=== PATIENT | male | born 1945 | race Caucasian/White ===

== ENCOUNTER 2020-01-30 19:57 | Inpatient (IN) | payer MEDICARE ==
[2020-01-30] MEDS ORDERED: RINGERS LACTATED IV ONE (20:27)
--- NOTE | 2020-01-30 20:30 | ER Document Report ---
ED Fever - General Chief Complaint: Fever Stated Complaint: ALTERED MENTAL STATUS Time Seen by Provider: 01/30/20 20:20 Notes: Patient is a 75-year-old male that comes from [facility] for chief complaint of altered mental status, decreased responsiveness, nursing staff reported he "looked more in pain than usual" per EMS, and he was found to have a fever of 101 F on arrival by EMS. Patient reportedly has had d ecreased urine output from his Merchant, he has a suprapubic catheter. Patient reportedly has some dementia at baseline, has a history of atrial fibrillation on (Cardizem and Eliquis), CHF, insulin-dependent diabetes, renal transplant (on tacrolimus), decubitus ulcers on the heels of both feet, CVA, CAD with [place]. He does have DNR paperwork with him here. He received 975 Tylenol as needed and 500 cc bolus by EMS. TRAVEL OUTSIDE OF THE [place] IN LAST 30 DAYS: No - Related Data Allergies/Adverse Reactions: blue dye Allergy (Verified 01/30/20 20:17) Corticosteroids (Glucocorticoids) Allergy (Verified 01/30/20 20:17) enoxaparin Allergy (Verified 01/30/20 20:17) Iodinated Contrast Media Allergy (Verified 01/30/20 20:17) morphine Allergy (Verified 01/30/20 20:17) NSAIDS (Non-Steroidal Anti-Inflamma Allergy (Verified 01/30/20 20:17) promethazine Allergy (Verified 01/30/20 20:17) Sulfa (Sulfonamide Antibiotics) Allergy (Verified 01/30/20 20:17) TAPE Allergy (Uncoded 01/30/20 20:17) Past Medical History - General Information source: Patient, Transfer Record, Emergency Med Personnel - Social History Smoking Status: Unknown if Ever Smoked Frequency of alcohol use: None Drug Abuse: None Lives with: [facility] Family History: None Patient has suicidal ideation: No Patient has homicidal ideation: No - Past Medical History Cardiac Medical History: Reports: Hx Atrial Fibrillation, Hx Coronary Artery Disease, Hx Hypertension Endocrine Medical History: Reports: Hx Diabetes Mellitus Type 2 Renal/ Medical History: Reports: Other - renal transplant - Immunizations Hx Diphtheria, Pertussis, Tetanus Vaccination: Yes Review of Systems - Review of Systems Constitutional: See HPI EENT: No symptoms reported Cardiovascular: No symptoms reported Respiratory: No symptoms reported Gastrointestinal: No symptoms reported Genitourinary: No symptoms reported Male Genitourinary: No symptoms reported Musculoskeletal: No symptoms reported Skin: No symptoms reported Hematologic/Lymphatic: No symptoms reported Neurological/Psychological: See HPI Physical Exam - Vital signs Vitals: Temp Resp BP Pulse Ox 101 F H 18 113/56 L 97 01/30/20 20:11 01/30/20 20:11 01/30/20 20:11 01/30/20 20:11 - Notes Notes: GENERAL: Drowsy but arousable and cooperative, does not appear to be in distress but is somewhat ill in appearance HEAD: Normocephalic, atraumatic. EYES: Pupils equal, round, and reactive to light. Extraocular movements intact. ENT: Oral mucosa moist, tongue midline. Oropharynx unremarkable. Airway patent. Nares patent, no nasal septal hematoma LUNGS: Clear to auscultation bilaterally, no wheezes, rales, or rhonchi. No respiratory distress. HEART: Irregularly irregular, mildly tachycardic, no murmur ABDOMEN: Soft, non-tender. Non-distended. Large lower abdominal scar which is o ld. Suprapubic catheter in place. GENITOURINARY: No swelling or tenderness, no concerning findings EXTREMITIES: Moves all 4 extremities spontaneously. No edema, normal radial and dorsalis pedis pulses bilaterally. No cyanosis. BACK: no cervical, thoracic, lumbar midline tenderness. NEUROLOGICAL: Alert and responsive, cooperative but not oriented. Clear speech. Cranial nerves II through XII grossly intact. SKIN: Flushed Course - Re-evaluation Re-evalutation: Patient is febrile, flushed, however he is actually quite responsive and cooperative. He is confused but reportedly he is confused at baseline. He is tachycardic with atrial fibrillation but atrial fibrillation is chronic and this is not in RVR at this time. He is not hypotensive or hypoxic. His abdomen is soft and does not appear to be tender at all. He has a suprapubic catheter and we pulled urine from the port. Chest x-ray showing airspace opacities and effusion on the left. CBC shows leukocytosis at 24,000 with elevation of neutrophils but no bandemia. Urine does indicate infection, nonspecific given suprapubic catheter. Lactic acid is mildly elevated at 2.9, patient received 500 cc bolus and received 2 additional boluses here, however I did not give additional from there because of patient's history of congestive heart failure. Patient occasionally drops blood pressure down into the upper 90s but this has been returning to the 100s systolic and patient has not become severely hypotensive. Patient has been covered with broad-spectrum antibiotics. He will require admission for pneumonia, urinary tract infection, leukocytosis, tachycardia, suspected early sepsis. Patient also will require treatment for hospital- acquired infection with broad-spectrum antibiotics. Discussed with Dr. Cantrell. Discussed with Dr. Castro, hospitalist, patient accepted to the [facility] full admission. did come to bedside, she states that her phone had been missing with a calls from earlier, she went and saw the patient, patient is actually doing very well now, he recognized her, he appears much improved in appearance, she was very happy with this. She states he started not recognizing her last night (almost 24 hours ago). She states she was thinking maybe the patient could be transferred, we discussed this, she states that if patient can be treated here she would prefer this. She brought all of patient's medications. Patient already has a bed upstairs. I discussed with Dr. Cantrell, agrees with admission here. I answered all questions to the best of my ability, she states appreciation and agreement with admission plan. - Vital Signs Vital signs: Temp Pulse Resp BP Pulse Ox 99.4 F 23 H 94/48 L 95 01/31/20 02:52 01/31/20 02:01 01/31/20 02:01 01/31/20 02:01 - Laboratory Result Diagrams: 01/30/20 21:00 01/30/20 21:00 Laboratory results interpreted by me: 01/30/20 01/30/20 01/30/20 21:00 21:00 21:00 WBC 24.2 H RBC 4.17 L Hgb 10.6 L Hct 32.3 L MCV 77 L MCH 25.3 L RDW 21.3 H Plt Count 561 H Seg Neuts % (Manual) 89 H Lymphocytes % (Manual) 8 L Monocytes % (Manual) 1 L Abs Neuts (Manual) 21.5 H VBG pH VBG pCO2 Sodium 135.7 L Potassium 3.3 L BUN 30 H Creatinine 1.31 H Est GFR (MDRD) Non-Af 53 L Glucose 33 L* POC Glucose Lactic Acid 2.7 H Calcium 7.2 L Magnesium Alkaline Phosphatase 144 H Total Protein 4.7 L Albumin 2.1 L Urine Protein Ur Leukocyte Esterase 01/30/20 01/30/20 01/30/20 21:00 22:24 22:30 WBC RBC Hgb Hct MCV MCH RDW Plt Count Seg Neuts % (Manual) Lymphocytes % (Manual) Monocytes % (Manual) Abs Neuts (Manual) VBG pH 7.49 H VBG pCO2 28.0 L Sodium Potassium BUN Creatinine Est GFR (MDRD) Non-Af Glucose POC Glucose 117 H Lactic Acid Calcium Magnesium 1.3 L Alkaline Phosphatase Total Protein Albumin Urine Protein Ur Leukocyte Esterase 01/30/20 23:30 WBC RBC Hgb Hct MCV MCH RDW Plt Count Seg Neuts % (Manual) Lymphocytes % (Manual) Monocytes % (Manual) Abs Neuts (Manual) VBG pH VBG pCO2 Sodium Potassium BUN Creatinine Est GFR (MDRD) Non-Af Glucose POC Glucose Lactic Acid Calcium Magnesium Alkaline Phosphatase Total Protein Albumin Urine Protein 30 H Ur Leukocyte Esterase LARGE H Discharge - Discharge Clinical Impression: Tachycardia Fever Qualifiers: Fever type: unspecified Qualified Code(s): R50.9 - Fever, unspecified Altered mental status Qualifiers: Altered mental status type: unspecified Qualified Code(s): R41.82 - Altered mental status, unspecified Leukocytosis Qualifiers: Leukocytosis type: unspecified Qualified Code(s): D72.829 - Elevated white blood cell count, unspecified Condition: Fair Disposition: ADMITTED INPATIENT Admitting Provider: Matthew (Hospitalist) Unit Admitted: [facility]
[2020-01-30] MEDS ORDERED: NORMAL SALINE 1000 ML 1,000 ML IV ONE ×2 (20:40→21:54)
[2020-01-30] MEDS ORDERED: PIPERACILLIN/TAZOBACTAM 3.375 GM VIAL IV ONE (20:40)
[2020-01-30] MEDS ORDERED: VANCOMYCIN HCL INJ 1000 MG VIAL IV ONE (20:40)
--- NOTE | 2020-01-30 21:11 | RADIOLOGY REPORT (SQ) ---
AP Portable chest: 01/30/2020 8:09 PM CDT History: 75-year old patient with fever, tachycardia. Comparison: None available Findings: The cardiomediastinal silhouette is enlarged. No pneumothorax is seen. There are airspace opacities within the left lung base associated with a small left effusion. Atherosclerotic calcifications are seen at the aortic arch. There is prominence of the main pulmonary artery. There is partial obscuration of the left hemidiaphragm, likely due to overlying airspace opacities and/or effusions. Impression: There are airspace opacities at the left lung base associated with a small left effusion.
[2020-01-30 21:34] LABS: HEMATOCRIT 32.3 % (37.9-51.0); HEMOGLOBIN 10.6 g/dL (13.5-17.0); MEAN CORPUSCULAR HEMOGLOBIN 25.3 pg (27.0-33.4); MEAN CORPUSCULAR HGB CONC 32.7 g/dL (32.0-36.0); MEAN CORPUSCULAR VOLUME 77 fl (80-97); PLATELET COUNT 561 10^3/uL (150-450); RED BLOOD COUNT 4.17 10^6/uL (4.35-5.55); RED CELL DISTRIBUTION WIDTH 21.3 % (11.5-14.0); WHITE BLOOD COUNT 24.2 10^3/uL (4.0-10.5)
[2020-01-30 21:42] LABS: ALBUMIN 2.1 g/dL (3.5-5.0); ALKALINE PHOSPHATASE 144 U/L (38-126); ANION GAP 10 (5-19); ASPARTATE AMINO TRANSFERASE 38 U/L (17-59); BILIRUBIN,DIRECT 0.3 mg/dL (0.0-0.4); BILIRUBIN,TOTAL 0.3 mg/dL (0.2-1.3); BLOOD UREA NITROGEN 30 mg/dL (7-20); CALCIUM 7.2 mg/dL (8.4-10.2); CARBON DIOXIDE 22 mmol/L (22-30); CHLORIDE 104 mmol/L (98-107); POTASSIUM 3.3 mmol/L (3.6-5.0); TOTAL PROTEIN 4.7 g/dL (6.3-8.2)
[2020-01-30 21:53] LABS: ABSOLUTE LYMPHOCYTES# (MANUAL) 1.9 10^3/uL (0.5-4.7); ABSOLUTE MONOCYTES # (MANUAL) 0.2 10^3/uL (0.1-1.4); ANISOCYTOSIS 3+; BASOPHILS % (MANUAL) 1 % (0-2); EOSINOPHILS % (MANUAL) 1 % (0-6); HYPOCHROMASIA SLIGHT; LYMPHOCYTES % (MANUAL) 8 % (13-45); MONOCYTES % (MANUAL) 1 % (3-13); PLATELET CLUMPS PRESENT; PLATELET COMMENT INCREASED; PLATELET GIANT PRESENT; PLATELET LARGE PRESENT; POIKILOCYTOSIS SLIGHT; POLYCHROMASIA SLIGHT; SEGMENTED NEUTROPHILS % (MAN) 89 % (42-78); TOTAL CELLS COUNTED 100
[2020-01-30 21:56] LABS: GLUCOSE 33 mg/dL (75-110)
[2020-01-30] MEDS ORDERED: DEXTROSE 50%-WATER 25 GM/50 ML DISP.SYRIN IV ONE ×2 (21:56→21:58)
[2020-01-30 22:44] LABS: VENOUS BLOOD BASE EXCESS -1.4 mmol/L; VENOUS BLOOD PH 7.49 (7.30-7.42)
[2020-01-30 23:13] LABS: A TYPE INFLUENZA AG NEGATIVE (NEGATIVE); B INFLUENZA AG NEGATIVE (NEGATIVE)
[2020-01-30 23:59] LABS: APPEARANCE,URINE SLIGHTLY-CLOUDY; BILIRUBIN,URINE NEGATIVE (NEGATIVE); CALCIUM OXALATE CRYSTALS,URINE MODERATE /HPF; COLOR,URINE YELLOW; GLUCOSE, URINE NEGATIVE (NEGATIVE); KETONES,URINE NEGATIVE (NEGATIVE); LEUKOCYTE ESTERASE,URINE LARGE (NEGATIVE); NITRITE,URINE NEGATIVE (NEGATIVE); PROTEIN,URINE 30 mg/dL (NEGATIVE); UROBILINOGEN,URINE NEGATIVE mg/dL (<2.0)
[2020-01-31] MEDS ORDERED: MAG HYDROX/AL HYDROX/SIMETH SUSP 30 ML UDCUP PO PRN (00:02)
[2020-01-31] MEDS ORDERED: GLUCAGON,HUMAN RECOMB 1 MG INJ IM PRN (00:02)
[2020-01-31] MEDS ORDERED: DEXTROSE 50%-WATER 25 GM/50 ML DISP.SYRIN IV PRN ×2 (00:02)
[2020-01-31] MEDS ORDERED: DEXTROSE 40% GEL 15 GM TUBE PO PRN ×2 (00:02)
[2020-01-31] MEDS ORDERED: MAGNESIUM HYDROXIDE SUSP 30 ML UDCUP PO PRN (00:02)
[2020-01-31] MEDS ORDERED: IPRATROPIUM/ALBUTEROL 0.5-2.5 MG/3 ML AMPUL NEB PRN (00:02)
[2020-01-31] MEDS ORDERED: VANCOMYCIN HCL 0 MG in DEXTROSE 5%-WATER 250 ML IV NR (00:30)
[2020-01-31] MEDS ORDERED: PIPERACILLIN/TAZOBACTAM 3.375 GM VIAL IV PRN (00:41)
[2020-01-31] MEDS: NORMAL SALINE 1000 ML 1,000 ML IV PRN ×2 (04:05→09:22)
[2020-01-31 04:46] LABS: HEMATOCRIT 26.2 % (37.9-51.0); HEMOGLOBIN 8.6 g/dL (13.5-17.0); MEAN CORPUSCULAR HEMOGLOBIN 24.9 pg (27.0-33.4); MEAN CORPUSCULAR HGB CONC 32.7 g/dL (32.0-36.0); MEAN CORPUSCULAR VOLUME 76 fl (80-97); PLATELET COUNT 440 10^3/uL (150-450); RED BLOOD COUNT 3.44 10^6/uL (4.35-5.55); WHITE BLOOD COUNT 27.1 10^3/uL (4.0-10.5)
[2020-01-31 05:02] LABS: ANION GAP 9 (5-19); BLOOD UREA NITROGEN 30 mg/dL (7-20); CALCIUM 7.2 mg/dL (8.4-10.2); CARBON DIOXIDE 20 mmol/L (22-30); CHLORIDE 106 mmol/L (98-107); GLUCOSE 110 mg/dL (75-110); POTASSIUM 3.2 mmol/L (3.6-5.0)
[2020-01-31 05:28] LABS: ABSOLUTE LYMPHOCYTES# (MANUAL) 1.9 10^3/uL (0.5-4.7); ABSOLUTE MONOCYTES # (MANUAL) 1.6 10^3/uL (0.1-1.4); BAND NEUTROPHILS % (MANUAL) 2 % (3-5); BASOPHILS % (MANUAL) 1 % (0-2); EOSINOPHILS % (MANUAL) 0 % (0-6); LYMPHOCYTES % (MANUAL) 7 % (13-45); MONOCYTES % (MANUAL) 6 % (3-13); SEGMENTED NEUTROPHILS % (MAN) 84 % (42-78); TOTAL CELLS COUNTED 100; TOXIC GRANULATION SLIGHT
[2020-01-31 05:29] LABS: ANISOCYTOSIS 3+
[2020-01-31 05:30] LABS: OVALOCYTES SLIGHT; PLATELET COMMENT ADEQUATE
[2020-01-31 05:31] LABS: POLYCHROMASIA SLIGHT
[2020-01-31] MEDS ORDERED: PIPERACILLIN/TAZOBACTAM 3.375 GM VIAL IV ONE (06:11)
[2020-01-31] MEDS: PIPERACILLIN SODIUM/TAZOBACTAM 3.375 GM in NORMAL SALINE 100 ML IV SCH ×4 (06:30→23:36)
--- NOTE | 2020-01-31 06:45 | PDOC H&P ---
History of Present Illness Admission Date/PCP: 01/31/20 00:00 LAURA ERVIN MD Patient complains of: Fever and confusion History of Present Illness: LAURA CALVILLO is a 75 year old male [facility] resident with an extensive partial past medical history of blindness, dementia, renal transplant on tacrolimus, stroke, bedbound state, atrial fibrillation on Cardizem and Eliquis, congestive heart failure, insulin-dependent diabetes, bilateral heel ulcer and suprapubic catheter. History is unobtainable as family is unavailable, medication reconciliation is also pending. In the emergency department he was found with confusion, denying pain or shortness of breath but found to have anemia, fever, leukocytosis, hypokalemia, hypomagnesemia, and pyuria from a indwelling catheter. Past Medical History Cardiac Medical History: Reports: Atrial Fibrillation, Coronary Artery Disease, Hypertension Neurological Medical History: Reports: Ischemic CVA Endocrine Medical History: Reports: Diabetes Mellitus Type 2 Renal/ Medical History: Reports: Other - renal transplant Past Surgical History Past Surgical History: Reports: Gastric Bypass Surgery Social History Information Source: Emergency Med Personnel, [facility] Records Lives with: [facility]mediate Smoking Status: Unknown if Ever Smoked Frequency of Alcohol Use: None Drugs: None - Advance Directive Resuscitation Status: Do Not Resuscitate Family History Family History: Other - Unobtainable Parental Family History Reviewed: No - Unobtainable Children Family History Reviewed: No - Unobtainable Sibling(s) Family History Reviewed.: No - Unobtainable Medication/Allergy Allergies/Adverse Reactions: blue dye Allergy (Verified 01/30/20 20:17) Corticosteroids (Glucocorticoids) Allergy (Verified 01/30/20 20:17) enoxaparin Allergy (Verified 01/30/20 20:17) Iodinated Contrast Media Allergy (Verified 01/30/20 20:17) morphine Allergy (Verified 01/30/20 20:17) NSAIDS (Non-Steroidal Anti-Inflamma Allergy (Verified 01/30/20 20:17) promethazine Allergy (Verified 01/30/20 20:17) Sulfa (Sulfonamide Antibiotics) Allergy (Verified 01/30/20 20:17) TAPE Allergy (Uncoded 01/30/20 20:17) Review of Systems ROS unobtainable: Due to mental status Physical Exam Vital Signs: Temp Pulse Resp BP Pulse Ox 98.1 F 101 H 20 106/35 L 95 01/31/20 04:52 01/31/20 04:52 01/31/20 04:52 01/31/20 04:52 01/31/20 02:01 Intake & Output 01/29/20 01/30/20 01/31/20 11:59 11:59 11:59 Intake Total 1999 Balance 1999 Weight 90.718 kg General appearance: PRESENT: cooperative, hard of hearing, mild distress, well- developed, well-nourished Head exam: PRESENT: atraumatic, normocephalic Eye exam: PRESENT: EOMI, other - Pupillary asymmetry known chronic. ABSENT: conjunctival injection, conjunctiva pink, PERRLA Ear exam: PRESENT: normal external ear exam Mouth exam: PRESENT: dry mucosa, tongue midline Neck exam: ABSENT: carotid bruit, JVD, lymphadenopathy, thyromegaly Respiratory exam: PRESENT: clear to auscultation ritesh. ABSENT: rales, rhonchi, wheezes Cardiovascular exam: PRESENT: irregular rhythm. ABSENT: diastolic murmur, rubs, systolic murmur Pulses: PRESENT: normal dorsalis pedis pul Vascular exam: PRESENT: normal capillary refill GI/Abdominal exam: PRESENT: normal bowel sounds, soft. ABSENT: distended, guarding, mass, organolmegaly, rebound, tenderness Rectal exam: PRESENT: deferred Extremities exam: PRESENT: full ROM. ABSENT: calf tenderness, clubbing, pedal edema Neurological exam: PRESENT: alert, awake, oriented to person, CN II-XII grossly intact. ABSENT: motor sensory deficit Psychiatric exam: PRESENT: appropriate affect, normal mood. ABSENT: homicidal ideation, suicidal ideation Skin exam: PRESENT: dry, intact, warm, other - 4 x 4 stage II sacral decubiti, bilateral stage III heel ulcers. ABSENT: cyanosis, rash Results Laboratory Results: 01/31/20 04:26 01/31/20 04:26 01/30/20 01/30/20 01/30/20 21:00 21:00 21:00 WBC 24.2 H RBC 4.17 L Hgb 10.6 L Hct 32.3 L MCV 77 L MCH 25.3 L MCHC 32.7 RDW 21.3 H Plt Count 561 H Seg Neutrophils % Not Reportable VBG pH VBG pCO2 VBG HCO3 VBG Base Excess Sodium 135.7 L Potassium 3.3 L Chloride 104 Carbon Dioxide 22 Anion Gap 10 BUN 30 H Creatinine 1.31 H Est GFR ( Amer) > 60 Glucose 33 L* Lactic Acid 2.7 H Calcium 7.2 L Magnesium Total Bilirubin 0.3 AST 38 Alkaline Phosphatase 144 H Total Protein 4.7 L Albumin 2.1 L Urine Color Urine Appearance Urine pH Ur Specific Kaplan Urine Protein Urine Glucose (UA) Urine Ketones Urine Blood Urine Nitrite Ur Leukocyte Esterase Urine WBC (Auto) Urine RBC (Auto) 01/30/20 01/30/20 01/30/20 21:00 22:24 23:30 WBC RBC Hgb Hct MCV MCH MCHC RDW Plt Count Seg Neutrophils % VBG pH 7.49 H VBG pCO2 28.0 L VBG HCO3 21.0 VBG Base Excess -1.4 Sodium Potassium Chloride Carbon Dioxide Anion Gap BUN Creatinine Est GFR ( Amer) Glucose Lactic Acid Calcium Magnesium 1.3 L Total Bilirubin AST Alkaline Phosphatase Total Protein Albumin Urine Color YELLOW Urine Appearance SLIGHTLY-CLOUDY Urine pH 5.0 Ur Specific Kaplan 1.010 Urine Protein 30 H Urine Glucose (UA) NEGATIVE Urine Ketones NEGATIVE Urine Blood NEGATIVE Urine Nitrite NEGATIVE Ur Leukocyte Esterase LARGE H Urine WBC (Auto) 52 Urine RBC (Auto) 5 01/31/20 01/31/20 01/31/20 00:18 04:26 04:26 WBC 27.1 H RBC 3.44 L Hgb 8.6 L Hct 26.2 L MCV 76 L MCH 24.9 L MCHC 32.7 RDW 22.0 H Plt Count 440 Seg Neutrophils % Not Reportable VBG pH VBG pCO2 VBG HCO3 VBG Base Excess Sodium Potassium Chloride Carbon Dioxide Anion Gap BUN Creatinine Est GFR ( Amer) Glucose Lactic Acid 1.6 1.2 Calcium Magnesium Total Bilirubin AST Alkaline Phosphatase Total Protein Albumin Urine Color Urine Appearance Urine pH Ur Specific Kaplan Urine Protein Urine Glucose (UA) Urine Ketones Urine Blood Urine Nitrite Ur Leukocyte Esterase Urine WBC (Auto) Urine RBC (Auto) 01/31/20 04:26 WBC RBC Hgb Hct MCV MCH MCHC RDW Plt Count Seg Neutrophils % VBG pH VBG pCO2 VBG HCO3 VBG Base Excess Sodium 134.7 L Potassium 3.2 L Chloride 106 Carbon Dioxide 20 L Anion Gap 9 BUN 30 H Creatinine 1.29 H Est GFR ( Amer) > 60 Glucose 110 Lactic Acid Calcium 7.2 L Magnesium Total Bilirubin AST Alkaline Phosphatase Total Protein Albumin Urine Color Urine Appearance Urine pH Ur Specific Kaplan Urine Protein Urine Glucose (UA) Urine Ketones Urine Blood Urine Nitrite Ur Leukocyte Esterase Urine WBC (Auto) Urine RBC (Auto) Assessment and Plan - Diagnosis (1) Urinary tract infection Qualifiers: Urinary tract infection type: acute cystitis Is this a current diagnosis for this admission?: Yes Plan: Complicated by chronic indwelling Merchant, empiric antibiotics initiated, follow- up urine, blood culture and CBC (2) Encephalopathy Is this a current diagnosis for this admission?: Yes Plan: Likely secondary to #1, complicated by dementia (3) Immunocompromised state due to drug therapy Is this a current diagnosis for this admission?: Yes Plan: Patient on tacrolimus with renal transplant. Vancomycin and Zosyn ordered (4) Hypokalemia Is this a current diagnosis for this admission?: Yes Plan: Repletion and reevaluation of chemistry (5) Hypomagnesemia Is this a current diagnosis for this admission?: Yes Plan: Repletion and reevaluation of chemistry (6) Anemia Is this a current diagnosis for this admission?: Yes Plan: Unclear chronicity, follow-up anemia labs - Time Time Spent with patient: 35 or more minutes - Inpatient Certification Medical Necessity: Need Close Monitoring Due to Risk of Patient Decompensation
[2020-01-31] MEDS ORDERED: INFLUENZA QUAD (6MOS+) 2019-20 VAC 0.5 ML SYR IM ONE (06:54)
[2020-01-31] MEDS: POTASSI CL 20 MEQ/50 ML RIDER 20 MEQ/50 ML RTUPB IV SCH ×2 (08:13→09:26)
[2020-01-31] MEDS: MAGNESIUM SULFATE/D5W 1 GM/100 ML RTUPB IV SCH ×2 (08:14→09:21)
[2020-01-31] MEDS: DOCUSATE SODIUM 100 MG CAPSULE PO SCH (09:29)
--- NOTE | 2020-01-31 11:53 | EKG REPORT ---
SEVERITY:- ABNORMAL ECG - ATRIAL FIBRILLATION, V-RATE 90-136 VENTRICULAR PREMATURE COMPLEX LEFT AXIS DEVIATION CONSIDER ANTEROSEPTAL INFARCT ABNORMAL T, CONSIDER ISCHEMIA, LATERAL LEADS : Confirmed by: Mike Chamorro 31-Jan-2020 11:52:44
[2020-01-31] MEDS: VANCOMYCIN HCL 750 MG in DEXTROSE 5%-WATER 250 ML IV SCH ×2 (14:26→21:22)
[2020-01-31] MEDS: GABAPENTIN 100 MG CAPSULE PO SCH (17:42)
[2020-01-31] MEDS: RISPERIDONE 0.25 MG TABLET PO SCH (17:42)
[2020-01-31] MEDS: APIXABAN 5 MG TABLET PO SCH (17:42)
[2020-01-31] MEDS: ASCORBIC ACID 500 MG TABLET PO SCH (17:42)
[2020-01-31] MEDS ORDERED: MYCOPHENOLATE SODIUM 180 MG PO SCH (18:00)
[2020-01-31] MEDS: COLLAGENASE CLOSTRIDIUM HIST. OINT 30 GM TOP SCH (18:52)
[2020-01-31] MEDS: ISOSORBIDE DINITRATE 5 MG TABLET PO SCH (18:52)
--- NOTE | 2020-01-31 19:41 | Progress Note ---
Provider Note Provider Note: LAURA CALVILLO is a 75 year old male [facility]iary resident with an extensive partial past medical history of blindness, dementia, renal transplant on tacrolimus, stroke, bedbound state, atrial fibrillation on Cardizem and Eliquis, congestive heart failure, insulin-dependent diabetes, bilateral heel ulcer and suprapubic catheter admitted early this morning by the [employer]. Overnight events, nursing notes, vital signs, laboratory results, imaging reports, and orders reviewed. Agree with the plan of care as established by the previous provider. In addition: Have ordered sputum and urine cultures. Have resumed the patient's home medication as appropriate (twice daily Eliquis, ferrous sulfate, diltiazem, isosorbide, tamsulosin, BuSpar, gabapentin, Risperdal, and Effexor). I have asked nursing to verify whether or not the patient's suprapubic catheter has been replaced since arrival to our facility and, if not, to do so. Discussed patient's bilateral heel wounds w/ surgery. Appreciate Dr. Root's assistance; recommends Santyl dressing changes and pressure off loading. Have ordered q2 turns w/ heel floats. Discussed patient's baseline status (prior to admission to [facility] 1 month ago); pt was ambulatory 2-3 steps w/ walker. They do have wheelchair and david lift at hime. He was orientated to self and place, conversationa/socially approrpiate, but intermittently confused. Pt's wishes him to return to home, but has resonable expectations with regard to possible need for palliative care/hospice at discharge. This evening, nursing reported increased alertness; pt requesting to eat.
[2020-01-31] MEDS: DILTIAZEM HCL 30 MG TABLET PO SCH (21:25)
[2020-02-01] MEDS: DILTIAZEM HCL 30 MG TABLET PO SCH ×3 (05:06→21:32)
[2020-02-01] MEDS: LEVOTHYROXINE SODIUM 0.1 MG TABLET PO SCH (05:07)
[2020-02-01] MEDS: LEVOTHYROXINE SODIUM 0.025 MG TABLET PO SCH (05:07)
[2020-02-01] MEDS: PIPERACILLIN SODIUM/TAZOBACTAM 3.375 GM in NORMAL SALINE 100 ML IV SCH ×3 (05:07→18:15)
[2020-02-01] MEDS ORDERED: (PENDING PHARMACY ID) (Levothyroxine Sodium [Synthroid] 125 MCG) PO SCH (10:00)
[2020-02-01] MEDS: DOCUSATE SODIUM 100 MG CAPSULE PO SCH (10:05)
[2020-02-01] MEDS: PREDNISONE 5 MG TABLET PO SCH (10:28)
[2020-02-01] MEDS: TAMSULOSIN HCL 0.4 MG CAP.SR.24H PO SCH (10:28)
[2020-02-01] MEDS: ISOSORBIDE DINITRATE 5 MG TABLET PO SCH ×3 (10:28→18:15)
[2020-02-01] MEDS: ASCORBIC ACID 500 MG TABLET PO SCH (10:29)
[2020-02-01] MEDS: COLLAGENASE CLOSTRIDIUM HIST. OINT 30 GM TOP SCH ×2 (10:29→18:15)
[2020-02-01] MEDS: RISPERIDONE 0.25 MG TABLET PO SCH ×2 (10:29→18:14)
[2020-02-01] MEDS: GABAPENTIN 100 MG CAPSULE PO SCH ×3 (10:29→18:14)
[2020-02-01] MEDS: FERROUS SULFATE 325 MG TABLET PO SCH (10:29)
[2020-02-01] MEDS: APIXABAN 5 MG TABLET PO SCH ×2 (10:29→18:14)
[2020-02-01] MEDS: VENLAFAXINE HCL 37.5 MG CAP.SR.24H PO SCH (10:29)
[2020-02-01] MEDS: VANCOMYCIN HCL 750 MG in DEXTROSE 5%-WATER 250 ML IV SCH (10:35)
[2020-02-01 10:37] LABS: HEMOGLOBIN 9.1 g/dL (13.5-17.0); MEAN CORPUSCULAR HEMOGLOBIN 25.1 pg (27.0-33.4); MEAN CORPUSCULAR HGB CONC 32.5 g/dL (32.0-36.0); MEAN CORPUSCULAR VOLUME 77 fl (80-97); PLATELET COUNT 545 10^3/uL (150-450); RED BLOOD COUNT 3.63 10^6/uL (4.35-5.55); RED CELL DISTRIBUTION WIDTH 21.4 % (11.5-14.0); WHITE BLOOD COUNT 17.9 10^3/uL (4.0-10.5)
[2020-02-01 11:05] LABS: ANION GAP 9 (5-19); BLOOD UREA NITROGEN 27 mg/dL (7-20); CALCIUM 7.5 mg/dL (8.4-10.2); CARBON DIOXIDE 22 mmol/L (22-30); CHLORIDE 104 mmol/L (98-107); GLUCOSE 200 mg/dL (75-110); POTASSIUM 3.9 mmol/L (3.6-5.0)
[2020-02-01 11:21] LABS: VANCOMYCIN,TROUGH 21.4 ug/mL (5.0-20.0)
[2020-02-01 11:30] LABS: ABSOLUTE LYMPHOCYTES# (MANUAL) 0.4 10^3/uL (0.5-4.7); ABSOLUTE MONOCYTES # (MANUAL) 0.7 10^3/uL (0.1-1.4); BASOPHILS % (MANUAL) 1 % (0-2); EOSINOPHILS % (MANUAL) 2 % (0-6); LYMPHOCYTES % (MANUAL) 2 % (13-45); MONOCYTES % (MANUAL) 4 % (3-13); SEGMENTED NEUTROPHILS % (MAN) 91 % (42-78); TOTAL CELLS COUNTED 100
[2020-02-01 11:32] LABS: ANISOCYTOSIS 3+; BURR CELLS SLIGHT; HYPOCHROMASIA SLIGHT; POIKILOCYTOSIS SLIGHT; POLYCHROMASIA SLIGHT; SCHISTOCYTES SLIGHT; TEAR DROP CELLS SLIGHT; TOXIC GRANULATION SLIGHT
[2020-02-01 11:33] LABS: PLATELET COMMENT INCREASED
[2020-02-01] MEDS: ACETAMINOPHEN 325 MG TABLET PO PRN (12:17)
[2020-02-01] MEDS: BUSPIRONE HCL 10 MG TABLET PO SCH (12:18)
--- NOTE | 2020-02-01 13:05 | CDI QUERY ---
CDI Query CDI Review: Dear SHELBY, To better reflect your patients severity of illness, morbidity, and resource utilization Please LINK any condition to present on admission, if applicable. The terms probable, suspected, likely, possible or still to be ruled out may be used. If you agree, please add to the Progress Notes and Discharge Summary Query Clinical indicators METABOLIC ENCEPHALOPATHY? TOXIC ENCEPHALOPATHY? OTHER? UNABLE TO DETERMINE 2) Encephalopathy Is this a current diagnosis for this admission?: Yes Thank you, KATHY Clinical Documentation Physician Advisors GABBY Lopez Office [phone]
[2020-02-01] MEDS ORDERED: GLUCAGON,HUMAN RECOMB 1 MG INJ IM PRN (16:30)
[2020-02-01] MEDS ORDERED: DEXTROSE 50%-WATER SYRINGE 12.5 GM/25 ML DOSE IV PRN (16:30)
[2020-02-01] MEDS ORDERED: DEXTROSE 40% GEL 15 GM TUBE PO PRN (16:30)
[2020-02-01] MEDS ORDERED: DEXTROSE 40% GEL 15 GM TUBE X 2 PO PRN (16:30)
[2020-02-01] MEDS ORDERED: DEXTROSE 50%-WATER SYRINGE 25 GM/50 ML DOSE IV PRN (16:30)
[2020-02-01] MEDS ORDERED: INSULIN LISPRO 100 UNIT/ML 3 ML VIAL SUBCUT ONE (18:15)
--- NOTE | 2020-02-01 19:39 | PDOC PROGRESS REPORT ---
Subjective Progress Note for:: 02/01/20 Subjective:: LAURA CALVILLO is a 75 year old male longterm resident with an extensive partial past medical history of blindness, dementia, renal transplant on tacrolimus, stroke, bedbound state, atrial fibrillation on Cardizem and Eliquis, congestive heart failure, insulin-dependent diabetes, bilateral heel ulcer and suprapubic catheter admitted for acute metabolic encephalopathy secondary to UTI. Patient was seen on afternoon rounds. He was found sitting up in bed, c omfortably, on room air. He is awake and oriented to self. He does have delayed responses with intermittent confusion. Per nursing, he was improved mentation and increased conversational interactions this morning. She reports that his mental status is waxing and waning; overall significantly improved from yesterday. Patient does deny pain but does not answer any further questions. ROS is limited secondary to mental status. He does appear to be comfortable and is not noted to be in any acute distress at this time. Reason For Visit: UTI SEPSIS HYPOGLYCEMIA Physical Exam Vital Signs: Temp Pulse Resp BP Pulse Ox 98.5 F 100 16 120/48 L 94 02/01/20 15:09 02/01/20 15:09 02/01/20 15:09 02/01/20 15:09 02/01/20 15:09 Intake & Output 01/31/20 02/01/20 02/02/20 06:59 06:59 06:59 Intake Total 1999 4574 1870 Output Total 225 1200 625 Balance 1775 3374 1245 Weight 85 kg 84.7 kg General appearance: PRESENT: cooperative, hard of hearing, well-developed, well- nourished, other - Overweight Head exam: PRESENT: atraumatic, normocephalic Eye exam: PRESENT: conjunctiva pink, EOMI, PERRLA. ABSENT: scleral icterus Ear exam: PRESENT: normal external ear exam Mouth exam: PRESENT: moist, tongue midline Teeth exam: PRESENT: poor dentation Respiratory exam: PRESENT: clear to auscultation ritesh, symmetrical, unlabored. ABSENT: rales, rhonchi, wheezes Cardiovascular exam: PRESENT: irregular rhythm. ABSENT: diastolic murmur, rubs, systolic murmur Pulses: PRESENT: normal dorsalis pedis pul Vascular exam: PRESENT: normal capillary refill GI/Abdominal exam: PRESENT: normal bowel sounds, soft. ABSENT: distended, guarding, mass, organolmegaly, rebound, tenderness Rectal exam: PRESENT: deferred Gentrourinary exam: PRESENT: indwelling catheter Extremities exam: PRESENT: full ROM. ABSENT: calf tenderness, clubbing, pedal edema Neurological exam: PRESENT: alert, awake, oriented to person, CN II-XII grossly intact. ABSENT: motor sensory deficit Psychiatric exam: PRESENT: appropriate affect, normal mood. ABSENT: homicidal ideation, suicidal ideation Skin exam: PRESENT: dry, warm, other - 4 x 4 stage II sacral decubiti, bilateral stage III heel ulcers. ABSENT: cyanosis, rash Results Laboratory Results: 02/01/20 09:53 02/01/20 09:53 02/01/20 02/01/20 09:53 09:53 WBC 17.9 H RBC 3.63 L Hgb 9.1 L Hct 28.0 L MCV 77 L MCH 25.1 L MCHC 32.5 RDW 21.4 H Plt Count 545 H Seg Neutrophils % Not Reportable Sodium 135.0 L Potassium 3.9 Chloride 104 Carbon Dioxide 22 Anion Gap 9 BUN 27 H Creatinine 1.29 H Est GFR ( Amer) > 60 Glucose 200 H Calcium 7.5 L 01/30/20 21:03 Blood Blood Culture (PCR) - Final Staphylococcus Species Assessment and Plan - Diagnosis (1) Encephalopathy Is this a current diagnosis for this admission?: Yes Plan: Acute metabolic encephalopathy secondary to urinary tract infection, present on arrival. Improved. Patient is now alert and oriented to self. He is intermittently conversational. Patient is admitted to [facility] on continuous cardiac telemetry. On IV vancomycin and Zosyn for treatment of complicated UTI in immunocompromised with chronic indwelling catheter. Supportive care/fall precautions. Remaining management as below. (2) Urinary tract infection Qualifiers: Urinary tract infection type: acute cystitis Is this a current diagnosis for this admission?: Yes Plan: Urine cultures pending. Continue vancomycin and Zosyn. Merchant catheter has been replaced. (3) Anemia Qualifiers: Anemia type: unspecified type Qualified Code(s): D64.9 - Anemia, unspecified Is this a current diagnosis for this admission?: Yes Plan: Likely secondary to chronic disease. Anemia panel pending. Hemoglobin is overall stable (slight downward trend from 10.6-> 8.6-> 9.1). No evidence of active bleeding at this time. We will follow CBC. (4) Hypokalemia Is this a current diagnosis for this admission?: Yes Plan: Replete. Follow-up chemistry. (5) Hypomagnesemia Is this a current diagnosis for this admission?: Yes Plan: Replete Follow-up chemistry. (6) Immunocompromised state due to drug therapy Is this a current diagnosis for this admission?: Yes Plan: Patient on tacrolimus with renal transplant. Patient's has presented the medications from home to continue. Vancomycin and Zosyn ordered; will narrow as cultures result. - Time Time Spent with patient: 25-34 minutes Medications reviewed and adjusted accordingly: Yes Anticipated discharge: Home with Homehealth
[2020-02-01] MEDS ORDERED: BENZOCAINE/MENTHOL SORE THROAT LOZENGE BUCCAL PRN (19:40)
[2020-02-01] MEDS: INSULIN LISPRO 100 UNIT/ML 3 ML VIAL SUBCUT SCH (21:31)
[2020-02-02] MEDS: PIPERACILLIN SODIUM/TAZOBACTAM 3.375 GM in NORMAL SALINE 100 ML IV SCH ×5 (00:04→23:20)
[2020-02-02] MEDS: DILTIAZEM HCL 30 MG TABLET PO SCH ×3 (05:42→21:32)
[2020-02-02] MEDS: LEVOTHYROXINE SODIUM 0.025 MG TABLET PO SCH (05:42)
[2020-02-02] MEDS: LEVOTHYROXINE SODIUM 0.1 MG TABLET PO SCH (05:42)
[2020-02-02 06:47] LABS: ANION GAP 6 (5-19); BLOOD UREA NITROGEN 29 mg/dL (7-20); CALCIUM 7.4 mg/dL (8.4-10.2); CARBON DIOXIDE 23 mmol/L (22-30); CHLORIDE 107 mmol/L (98-107); GLUCOSE 185 mg/dL (75-110); POTASSIUM 3.7 mmol/L (3.6-5.0)
[2020-02-02 06:59] LABS: HEMATOCRIT 24.6 % (37.9-51.0); HEMOGLOBIN 8.1 g/dL (13.5-17.0); MEAN CORPUSCULAR HGB CONC 33.1 g/dL (32.0-36.0); MEAN CORPUSCULAR VOLUME 75 fl (80-97); PLATELET COUNT 455 10^3/uL (150-450); RED BLOOD COUNT 3.26 10^6/uL (4.35-5.55); RED CELL DISTRIBUTION WIDTH 21.7 % (11.5-14.0); WHITE BLOOD COUNT 17.4 10^3/uL (4.0-10.5)
[2020-02-02] MEDS: INSULIN LISPRO 100 UNIT/ML 3 ML VIAL SUBCUT SCH ×4 (07:55→21:32)
[2020-02-02] MEDS: VANCOMYCIN HCL 1,500 MG in DEXTROSE 5%-WATER 250 ML IV SCH (07:56)
--- NOTE | 2020-02-02 08:06 | CDI QUERY ---
CDI Query CDI Review: Dear SHELBY, To better reflect your patients severity of illness, morbidity, and resource utilization Please LINK any condition to present on admission, if applicable. The terms probable, suspected, likely, possible or still to be ruled out may be used. If you agree, please add to the Progress Notes and Discharge Summary Query Clinical indicators UTI DUE TO CHRONIC INDWELLING CATHETER? UTI UNRELATED TO CHRONIC INDWELLING CATHETER? UNABLE TO DETERMINE? OTHER? complicated UTI in immunocompromised with chronic indwelling catheter Thank you, KATHY Clinical Documentation Physician Advisors [facility] Office [phone]
[2020-02-02] MEDS: ASCORBIC ACID 500 MG TABLET PO SCH (09:55)
[2020-02-02] MEDS: GABAPENTIN 100 MG CAPSULE PO SCH ×3 (09:55→18:02)
[2020-02-02] MEDS: DOCUSATE SODIUM 100 MG CAPSULE PO SCH (09:55)
[2020-02-02] MEDS: RISPERIDONE 0.25 MG TABLET PO SCH ×2 (09:55→18:02)
[2020-02-02] MEDS: FERROUS SULFATE 325 MG TABLET PO SCH (09:55)
[2020-02-02] MEDS: ISOSORBIDE DINITRATE 5 MG TABLET PO SCH ×3 (09:55→18:02)
[2020-02-02] MEDS: PREDNISONE 5 MG TABLET PO SCH (09:55)
[2020-02-02] MEDS: APIXABAN 5 MG TABLET PO SCH ×2 (09:55→18:02)
[2020-02-02] MEDS: TAMSULOSIN HCL 0.4 MG CAP.SR.24H PO SCH (09:55)
[2020-02-02] MEDS: VENLAFAXINE HCL 37.5 MG CAP.SR.24H PO SCH (09:55)
[2020-02-02] MEDS: COLLAGENASE CLOSTRIDIUM HIST. OINT 30 GM TOP SCH ×2 (09:56→18:03)
[2020-02-02] MEDS: BUSPIRONE HCL 10 MG TABLET PO SCH (12:17)
--- NOTE | 2020-02-02 18:35 | PDOC PROGRESS REPORT ---
Subjective Progress Note for:: 02/02/20 Reason For Visit: UTI SEPSIS HYPOGLYCEMIA Physical Exam Vital Signs: Temp Pulse Resp BP Pulse Ox 98.4 F 87 20 138/57 H 92 02/02/20 15:45 02/02/20 15:45 02/02/20 15:45 02/02/20 15:45 02/02/20 15:45 Intake & Output 02/01/20 02/02/20 02/03/20 06:59 06:59 06:59 Intake Total 4574 2330 450 Output Total 1200 1600 Balance 3374 730 450 Weight 84.7 kg 91.2 kg General appearance: PRESENT: no acute distress, cooperative, hard of hearing, well-developed, well-nourished, other - Overweight Head exam: PRESENT: atraumatic, normocephalic Eye exam: PRESENT: conjunctiva pink, EOMI, PERRLA, other - Asymmetrical pupil secondary to prior CVA. ABSENT: scleral icterus Mouth exam: PRESENT: moist, tongue midline Teeth exam: PRESENT: poor dentation Respiratory exam: PRESENT: clear to auscultation ritesh, symmetrical, unlabored. ABSENT: rales, rhonchi, wheezes Cardiovascular exam: PRESENT: irregular rhythm. ABSENT: diastolic murmur, rubs, systolic murmur Pulses: PRESENT: normal dorsalis pedis pul Vascular exam: PRESENT: normal capillary refill GI/Abdominal exam: PRESENT: normal bowel sounds, soft. ABSENT: distended, guarding, mass, organolmegaly, rebound, tenderness Rectal exam: PRESENT: deferred Gentrourinary exam: PRESENT: indwelling catheter Extremities exam: PRESENT: full ROM. ABSENT: calf tenderness, clubbing, pedal edema Neurological exam: PRESENT: alert, awake, oriented to person, oriented to place, oriented to situation, CN II-XII grossly intact. ABSENT: motor sensory deficit Psychiatric exam: PRESENT: appropriate affect, normal mood. ABSENT: homicidal ideation, suicidal ideation Skin exam: PRESENT: dry, warm, other - 4 x 4 stage II sacral decubiti, bilateral stage III heel ulcers. ABSENT: cyanosis, rash Results Laboratory Results: 02/02/20 05:28 02/02/20 05:28 02/02/20 02/02/20 05:28 05:28 WBC 17.4 H RBC 3.26 L Hgb 8.1 L Hct 24.6 L MCV 75 L MCH 25.0 L MCHC 33.1 RDW 21.7 H Plt Count 455 H Sodium 136.2 L Potassium 3.7 Chloride 107 Carbon Dioxide 23 Anion Gap 6 BUN 29 H Creatinine 1.27 H Est GFR ( Amer) > 60 Glucose 185 H Calcium 7.4 L Magnesium 1.6 01/30/20 21:03 Blood Blood Culture (PCR) - Final Staphylococcus Species Assessment and Plan - Diagnosis (1) Encephalopathy Is this a current diagnosis for this admission?: Yes Plan: Acute metabolic encephalopathy secondary to urinary tract infection, present on arrival. Improved; now alert and oriented to self, place, situation. He answers all questions appropriately, socially appropriate and conversational today. Patient is admitted to [facility] on continuous cardiac telemetry. On IV vancomycin and Zosyn for treatment of complicated UTI in immunocompromised with chronic indwelling catheter. Supportive care/fall precautions. Remaining management as below. (2) Urinary tract infection Qualifiers: Urinary tract infection type: catheter-associated UTI Indwelling urinary catheter type: unspecified Is this a current diagnosis for this admission?: Yes Plan: Complicated UTI in immunocompromised patient with chronic indwelling suprapubic catheter prone to frequent infections. Urine cultures has no growth at 1 day, however, culture was obtained 48 hours following start of IV antibiotics. Blood cultures (01/30/2020; 1 of 4 bottles) with coag negative staph. Likely contaminant. Repeat blood cultures pending. Continue vancomycin and Zosyn. Merchant catheter has been replaced. (3) Anemia Qualifiers: Anemia type: unspecified type Qualified Code(s): D64.9 - Anemia, unspecified Is this a current diagnosis for this admission?: Yes Plan: Likely secondary to chronic disease. Anemia panel pending. Hemoglobin is overall stable (slight downward trend from 10.6-> 8.6-> 9.1-> 8.1). No evidence of active bleeding at this time. We will follow CBC. (4) Hypokalemia Is this a current diagnosis for this admission?: Yes Plan: Replete. Follow-up chemistry. (5) Hypomagnesemia Is this a current diagnosis for this admission?: Yes Plan: Replete Follow-up chemistry. (6) Immunocompromised state due to drug therapy Is this a current diagnosis for this admission?: Yes Plan: Patient on tacrolimus with renal transplant. Patient's has presented the medications from home to continue. Vancomycin and Zosyn ordered; will narrow as cultures result. - Time Time Spent with patient: 25-34 minutes Medications reviewed and adjusted accordingly: Yes Anticipated discharge: SNF
[2020-02-03] MEDS: PIPERACILLIN SODIUM/TAZOBACTAM 3.375 GM in NORMAL SALINE 100 ML IV SCH ×4 (05:30→23:43)
[2020-02-03] MEDS: DILTIAZEM HCL 30 MG TABLET PO SCH ×3 (05:32→21:48)
[2020-02-03] MEDS: LEVOTHYROXINE SODIUM 0.025 MG TABLET PO SCH (05:32)
[2020-02-03] MEDS: LEVOTHYROXINE SODIUM 0.1 MG TABLET PO SCH (05:32)
[2020-02-03] MEDS: INSULIN LISPRO 100 UNIT/ML 3 ML VIAL SUBCUT SCH ×4 (08:37→21:48)
[2020-02-03] MEDS: VANCOMYCIN HCL 1,500 MG in DEXTROSE 5%-WATER 250 ML IV SCH (08:39)
[2020-02-03 08:56] LABS: HEMATOCRIT 25.6 % (37.9-51.0); HEMOGLOBIN 8.6 g/dL (13.5-17.0); MEAN CORPUSCULAR HGB CONC 33.4 g/dL (32.0-36.0); MEAN CORPUSCULAR VOLUME 75 fl (80-97); PLATELET COUNT 512 10^3/uL (150-450); RED BLOOD COUNT 3.43 10^6/uL (4.35-5.55); RED CELL DISTRIBUTION WIDTH 21.5 % (11.5-14.0); WHITE BLOOD COUNT 13.9 10^3/uL (4.0-10.5)
[2020-02-03 09:22] LABS: ANION GAP 10 (5-19); BLOOD UREA NITROGEN 27 mg/dL (7-20); CALCIUM 7.6 mg/dL (8.4-10.2); CARBON DIOXIDE 21 mmol/L (22-30); CHLORIDE 106 mmol/L (98-107); GLUCOSE 171 mg/dL (75-110); POTASSIUM 3.4 mmol/L (3.6-5.0)
[2020-02-03 09:25] LABS: ABSOLUTE LYMPHOCYTES# (MANUAL) 1.1 10^3/uL (0.5-4.7); ABSOLUTE MONOCYTES # (MANUAL) 0.6 10^3/uL (0.1-1.4); BASOPHILS % (MANUAL) 1 % (0-2); EOSINOPHILS % (MANUAL) 3 % (0-6); LYMPHOCYTES % (MANUAL) 8 % (13-45); MONOCYTES % (MANUAL) 4 % (3-13); NUCLEATED RED BLOOD CELLS 1 /100 WBC (0); SEGMENTED NEUTROPHILS % (MAN) 81 % (42-78); TOTAL CELLS COUNTED 100
[2020-02-03 09:46] LABS: ANISOCYTOSIS 3+; HYPOCHROMASIA 1+; POLYCHROMASIA SLIGHT; TOXIC GRANULATION 1+
[2020-02-03 09:47] LABS: BURR CELLS 1+; PLATELET COMMENT INCREASED; POIKILOCYTOSIS 2+
[2020-02-03 09:50] LABS: METAMYELOCYTES % (MANUAL) 2 % (0-1); PROMYELOCYTES % (MANUAL) 1 % (0)
[2020-02-03 09:51] LABS: PLATELET CLUMPS PRESENT
[2020-02-03] MEDS: TAMSULOSIN HCL 0.4 MG CAP.SR.24H PO SCH (10:29)
[2020-02-03] MEDS: VENLAFAXINE HCL 37.5 MG CAP.SR.24H PO SCH (10:29)
[2020-02-03] MEDS: ASCORBIC ACID 500 MG TABLET PO SCH (10:30)
[2020-02-03] MEDS: FERROUS SULFATE 325 MG TABLET PO SCH (10:30)
[2020-02-03] MEDS: APIXABAN 5 MG TABLET PO SCH ×2 (10:30→17:54)
[2020-02-03] MEDS: GABAPENTIN 100 MG CAPSULE PO SCH ×3 (10:30→17:54)
[2020-02-03] MEDS: RISPERIDONE 0.25 MG TABLET PO SCH ×2 (10:30→17:57)
[2020-02-03] MEDS: COLLAGENASE CLOSTRIDIUM HIST. OINT 30 GM TOP SCH ×2 (10:31→17:57)
[2020-02-03] MEDS: DOCUSATE SODIUM 100 MG CAPSULE PO SCH (13:04)
[2020-02-03] MEDS: BUSPIRONE HCL 10 MG TABLET PO SCH (13:04)
[2020-02-03] MEDS: ISOSORBIDE DINITRATE 5 MG TABLET PO SCH ×3 (13:04→17:57)
[2020-02-03] MEDS: PREDNISONE 5 MG TABLET PO SCH (13:05)
--- NOTE | 2020-02-03 19:06 | PDOC PROGRESS REPORT ---
Subjective Progress Note for:: 02/03/20 Subjective:: LAURA CALVILLO is a 75 year old male alf resident with an extensive partial past medical history of blindness, dementia, renal transplant on tacrolimus, stroke, bedbound state, atrial fibrillation on Cardizem and Eliquis, congestive heart failure, insulin-dependent diabetes, bilateral heel ulcer and suprapubic catheter admitted for acute metabolic encephalopathy secondary to UTI. Patient was seen on afternoon rounds. He was found sitting up in bed, c omfortably, on room air. He is awake and oriented to self. He does have delayed responses with intermittent confusion. He tells me he is feeling well and has no complaints. He specifically denies fever, chest pain, dyspnea, abdominal pain, and nausea. He has no other questions. No concerns per nursing. Reason For Visit: UTI SEPSIS HYPOGLYCEMIA Physical Exam Vital Signs: Temp Pulse Resp BP Pulse Ox 98.5 F 80 16 147/63 H 95 02/03/20 15:46 02/03/20 15:46 02/03/20 15:46 02/03/20 15:46 02/03/20 15:46 Intake & Output 02/02/20 02/03/20 02/04/20 06:59 06:59 06:59 Intake Total 2330 2159 400 Output Total 1600 2500 Balance 730 -341 400 Weight 91.2 kg 94.1 kg General appearance: PRESENT: no acute distress, cooperative, hard of hearing, obese, well-developed, well-nourished Head exam: PRESENT: atraumatic, normocephalic Eye exam: PRESENT: conjunctiva pink, EOMI, PERRLA - asymetric pupils. ABSENT: scleral icterus Mouth exam: PRESENT: moist, tongue midline Teeth exam: PRESENT: poor dentation Respiratory exam: PRESENT: clear to auscultation ritesh, symmetrical, unlabored, other - room air. ABSENT: rales, rhonchi, wheezes Cardiovascular exam: PRESENT: irregular rhythm. ABSENT: diastolic murmur, rubs, systolic murmur Pulses: PRESENT: +1 pedal pulses bilateral Vascular exam: PRESENT: normal capillary refill GI/Abdominal exam: PRESENT: normal bowel sounds, soft. ABSENT: distended, guarding, mass, organolmegaly, rebound, tenderness Rectal exam: PRESENT: deferred Gentrourinary exam: PRESENT: indwelling catheter Extremities exam: PRESENT: full ROM. ABSENT: calf tenderness, clubbing, pedal edema Neurological exam: PRESENT: alert, awake, oriented to person, oriented to place, CN II-XII grossly intact, other - fatigued, intermittently confused. ABSENT: motor sensory deficit Psychiatric exam: PRESENT: appropriate affect, normal mood. ABSENT: homicidal ideation, suicidal ideation Skin exam: PRESENT: dry, warm, other - 4 x 4 stage II sacral decubiti, bilateral stage III heel ulcers. ABSENT: cyanosis, rash Results Laboratory Results: 02/03/20 07:55 02/03/20 07:55 02/03/20 02/03/20 07:55 07:55 WBC 13.9 H RBC 3.43 L Hgb 8.6 L Hct 25.6 L MCV 75 L MCH 25.0 L MCHC 33.4 RDW 21.5 H Plt Count 512 H Seg Neutrophils % Not Reportable Sodium 137.0 Potassium 3.4 L Chloride 106 Carbon Dioxide 21 L Anion Gap 10 BUN 27 H Creatinine 1.12 Est GFR ( Amer) > 60 Glucose 171 H Calcium 7.6 L 02/01/20 03:35 Suprapubic Catheter Urine Culture - Final Yeast, Not Maribel Albicans 01/30/20 21:03 Blood Blood Culture (PCR) - Final Staphylococcus Species 01/30/20 21:03 Blood Blood Culture - Final Staphylococcus Warneri Assessment and Plan - Diagnosis (1) Encephalopathy Is this a current diagnosis for this admission?: Yes Plan: Acute metabolic encephalopathy secondary to urinary tract infection, present on arrival. Improved; now alert and oriented to self, place, situation. He answers all questions appropriately, socially appropriate and conversational today. Likely at baseline. Patient is admitted to [facility] on continuous cardiac telemetry. Continue Zosyn for treatment of complicated UTI in immunocompromised with chronic indwelling catheter. Discontinued Vanc; received Day #3 Supportive care/fall precautions. Remaining management as below. (2) Urinary tract infection Qualifiers: Urinary tract infection type: catheter-associated UTI Indwelling urinary catheter type: unspecified Is this a current diagnosis for this admission?: Yes Plan: Complicated UTI in immunocompromised patient with chronic indwelling suprapubic catheter prone to frequent infections. Urine cultures has no growth at 1 day, however, culture was obtained 48 hours following start of IV antibiotics. Blood cultures (01/30/2020; 1 of 4 bottles) with Staph warneri; contaminant. Repeat blood cultures pending. Continue Zosyn. D/C Vanc; received 3 days of therapy. Merchant catheter has been replaced. (3) Anemia Qualifiers: Anemia type: unspecified type Qualified Code(s): D64.9 - Anemia, unspecified Is this a current diagnosis for this admission?: Yes Plan: Likely secondary to chronic disease. Anemia panel pending. Hemoglobin is overall stable (slight downward trend from 10.6-> 8.6-> 9.1-> 8.1- > 8.6). No evidence of active bleeding at this time. We will follow CBC. (4) Hypokalemia Is this a current diagnosis for this admission?: Yes Plan: Replete. Follow-up chemistry. (5) Hypomagnesemia Is this a current diagnosis for this admission?: Yes Plan: Replete Follow-up chemistry. (6) Immunocompromised state due to drug therapy Is this a current diagnosis for this admission?: Yes Plan: Patient on tacrolimus with renal transplant. Patient's has presented the medications from home to continue. Cultures and antibiotics as above. - Time Time Spent with patient: 25-34 minutes Medications reviewed and adjusted accordingly: Yes Anticipated discharge: SNF
[2020-02-04] MEDS: LEVOTHYROXINE SODIUM 0.1 MG TABLET PO SCH (06:24)
[2020-02-04] MEDS: PIPERACILLIN SODIUM/TAZOBACTAM 3.375 GM in NORMAL SALINE 100 ML IV SCH ×3 (06:24→17:41)
[2020-02-04] MEDS: DILTIAZEM HCL 30 MG TABLET PO SCH ×3 (06:24→22:14)
[2020-02-04] MEDS: LEVOTHYROXINE SODIUM 0.025 MG TABLET PO SCH (06:25)
[2020-02-04 06:33] LABS: ABSOLUTE RETICS # 0.047 10^6/uL (0.028-0.122); HEMATOCRIT 27.6 % (37.9-51.0); HEMOGLOBIN 9.2 g/dL (13.5-17.0); MEAN CORPUSCULAR HEMOGLOBIN 24.9 pg (27.0-33.4); MEAN CORPUSCULAR HGB CONC 33.2 g/dL (32.0-36.0); MEAN CORPUSCULAR VOLUME 75 fl (80-97); PLATELET COUNT 566 10^3/uL (150-450); RED BLOOD COUNT 3.69 10^6/uL (4.35-5.55); RED CELL DISTRIBUTION WIDTH 21.7 % (11.5-14.0); RETICULOCYTE COUNT (AUTO) 1.27 % (0.66-2.85); WHITE BLOOD COUNT 14.2 10^3/uL (4.0-10.5)
[2020-02-04 08:22] LABS: ANION GAP 7 (5-19); BLOOD UREA NITROGEN 24 mg/dL (7-20); CALCIUM 7.5 mg/dL (8.4-10.2); CARBON DIOXIDE 24 mmol/L (22-30); CHLORIDE 105 mmol/L (98-107); GLUCOSE 157 mg/dL (75-110); IRON(TIBC) 17.1 ug/dL (49-181); POTASSIUM 3.7 mmol/L (3.6-5.0)
[2020-02-04] MEDS: INSULIN LISPRO 100 UNIT/ML 3 ML VIAL SUBCUT SCH ×4 (08:40→22:13)
[2020-02-04] MEDS: BUMETANIDE 1 MG TABLET PO SCH ×2 (08:41→15:19)
[2020-02-04] MEDS ORDERED: ALBUTEROL SULFATE 0.083% NEB 2.5 MG/3 ML AMPUL NEB PRN (09:35)
[2020-02-04 09:50] LABS: ALBUMIN 2.1 g/dL (3.5-5.0); ALKALINE PHOSPHATASE 293 U/L (38-126); ASPARTATE AMINO TRANSFERASE 58 U/L (17-59); BILIRUBIN,DIRECT 0.1 mg/dL (0.0-0.4); BILIRUBIN,TOTAL 0.3 mg/dL (0.2-1.3); TOTAL PROTEIN 4.6 g/dL (6.3-8.2)
[2020-02-04] MEDS: DOCUSATE SODIUM 100 MG CAPSULE PO SCH (10:19)
[2020-02-04] MEDS: ISOSORBIDE DINITRATE 5 MG TABLET PO SCH ×3 (10:22→17:42)
[2020-02-04] MEDS: GABAPENTIN 100 MG CAPSULE PO SCH ×3 (10:23→17:42)
[2020-02-04] MEDS: VENLAFAXINE HCL 37.5 MG CAP.SR.24H PO SCH (10:23)
[2020-02-04] MEDS: PREDNISONE 5 MG TABLET PO SCH (10:23)
[2020-02-04] MEDS: FERROUS SULFATE 325 MG TABLET PO SCH (10:23)
[2020-02-04] MEDS: APIXABAN 5 MG TABLET PO SCH ×2 (10:23→17:42)
[2020-02-04] MEDS: RISPERIDONE 0.25 MG TABLET PO SCH ×2 (10:23→17:42)
[2020-02-04] MEDS: ASCORBIC ACID 500 MG TABLET PO SCH (10:23)
[2020-02-04] MEDS: TAMSULOSIN HCL 0.4 MG CAP.SR.24H PO SCH (10:23)
[2020-02-04] MEDS: COLLAGENASE CLOSTRIDIUM HIST. OINT 30 GM TOP SCH ×2 (10:24→22:16)
--- NOTE | 2020-02-04 10:37 | RADIOLOGY REPORT (SQ) ---
EXAM DESCRIPTION: CHEST SINGLE VIEW COMPLETED DATE/TIME: 02/04/2020 10:15 am REASON FOR STUDY: dyspnea, rhonchi, fever COMPARISON: 01/30/2020 NUMBER OF VIEWS: One view. TECHNIQUE: Single frontal radiographic view of the chest acquired. LIMITATIONS: None. FINDINGS: LUNGS AND PLEURA: Persistent opacity left retrocardiac. Probable mild effusion and volume loss/ consolidation. Mild vascular congestion suggested. Overall similar appearance to prior. MEDIASTINUM AND HILAR STRUCTURES: No masses. Contour normal. HEART AND VASCULAR STRUCTURES: Heart normal in size. Normal vasculature. BONES: No acute findings. HARDWARE: None in the chest. OTHER: No other significant finding. IMPRESSION: Relatively stable appearance. Persistent left basilar changes as before. TECHNICAL DOCUMENTATION: JOB ID: [id number] 2010 [employer]- All Rights Reserved Reading location - IP/workstation name: [email or web address]
[2020-02-04] MEDS: IPRATROPIUM/ALBUTEROL 0.5-2.5 MG/3 ML AMPUL NEB SCH ×2 (13:04→16:08)
[2020-02-04] MEDS: BUSPIRONE HCL 10 MG TABLET PO SCH (13:10)
--- NOTE | 2020-02-04 17:10 | PDOC PROGRESS REPORT ---
Subjective Progress Note for:: 02/04/20 Subjective:: LAURA CALVILLO is a 75 year old male care home resident with an extensive partial past medical history of blindness, dementia, renal transplant on tacrolimus, stroke, bedbound state, atrial fibrillation on Cardizem and Eliquis, congestive heart failure, insulin-dependent diabetes, bilateral heel ulcer and suprapubic catheter admitted for acute metabolic encephalopathy secondary to UTI. Patient was seen on morning rounds. He was found sitting up in bed, com fortably, on NC at 1 lpm. He is awake and oriented to self. He does have delayed responses with intermittent confusion. He only answers yes or no questions today. Therefore, ROS is somewhat limited. He specifically denies fever, chest pain, dyspnea, abdominal pain, and nausea. No concerns per nursing. Reason For Visit: UTI SEPSIS HYPOGLYCEMIA Physical Exam Vital Signs: Temp Pulse Resp BP Pulse Ox 97.8 F 87 15 141/57 H 98 02/04/20 13:03 02/04/20 16:08 02/04/20 16:08 02/04/20 13:03 02/04/20 16:08 Intake & Output 02/03/20 02/04/20 02/05/20 06:59 06:59 06:59 Intake Total 2159 700 100 Output Total 2500 1500 Balance -341 -800 100 Weight 94.1 kg 91 kg General appearance: PRESENT: no acute distress, cooperative, hard of hearing, w ell-developed, well-nourished Head exam: PRESENT: atraumatic, normocephalic Eye exam: PRESENT: conjunctiva pink, EOMI, PERRLA - asymetric pupils. ABSENT: scleral icterus Mouth exam: PRESENT: moist, tongue midline Teeth exam: PRESENT: poor dentation Respiratory exam: PRESENT: rhonchi, symmetrical, unlabored, other - supplemental oxygen via NC. ABSENT: rales, wheezes Cardiovascular exam: PRESENT: RRR. ABSENT: diastolic murmur, rubs, systolic mur mur Pulses: PRESENT: +1 pedal pulses bilateral Vascular exam: PRESENT: normal capillary refill GI/Abdominal exam: PRESENT: normal bowel sounds, soft. ABSENT: distended, guarding, mass, organolmegaly, rebound, tenderness Rectal exam: PRESENT: deferred Gentrourinary exam: PRESENT: indwelling catheter Extremities exam: PRESENT: full ROM. ABSENT: calf tenderness, clubbing, pedal edema Neurological exam: PRESENT: alert, awake, oriented to person, CN II-XII grossly intact, other - fatigued, intermittently confused. ABSENT: motor sensory deficit Psychiatric exam: PRESENT: flat affect, normal mood. ABSENT: homicidal ideation, suicidal ideation Skin exam: PRESENT: dry, warm. ABSENT: cyanosis, intact - 4 x 4 stage II sacral decubiti, bilateral stage III heel ulcers, rash Results Laboratory Results: 02/04/20 05:35 02/04/20 07:55 02/04/20 02/04/20 02/04/20 05:35 05:37 07:55 WBC 14.2 H RBC 3.69 L Hgb 9.2 L Hct 27.6 L MCV 75 L MCH 24.9 L MCHC 33.2 RDW 21.7 H Plt Count 566 H Retic Count (auto) 1.27 Sodium 135.7 L Potassium 3.7 Chloride 105 Carbon Dioxide 24 Anion Gap 7 BUN 24 H Creatinine 0.98 Est GFR ( Amer) > 60 Glucose 157 H Calcium 7.5 L Iron 17.1 L TIBC 176 L % Saturation 10 Ferritin 280.00 Total Bilirubin 0.3 AST 58 Alkaline Phosphatase 293 H Total Protein 4.6 L Albumin 2.1 L Vitamin B12 728.0 Folate 15.70 Impressions: Chest X-Ray 02/04/20 00:00 IMPRESSION: Relatively stable appearance. Persistent left basilar changes as before. Assessment and Plan - Diagnosis (1) Encephalopathy Is this a current diagnosis for this admission?: Yes Plan: Acute metabolic encephalopathy secondary to urinary tract infection, present on arrival. Improved; now alert and oriented to self, place, situation. He answers all questions appropriately, socially appropriate and conversational today. Likely at baseline. Patient is admitted to [facility] on continuous cardiac telemetry. Continue Zosyn for treatment of complicated UTI in immunocompromised with chronic indwelling catheter. Day #4 Discontinued Vanc; received Day #3 Supportive care/fall precautions. Remaining management as below. (2) Urinary tract infection Qualifiers: Urinary tract infection type: catheter-associated UTI Indwelling urinary catheter type: unspecified Is this a current diagnosis for this admission?: Yes Plan: Complicated UTI in immunocompromised patient with chronic indwelling suprapubic catheter prone to frequent infections. Urine cultures has no growth at 1 day, however, culture was obtained 48 hours following start of IV antibiotics. Blood cultures (01/30/2020; 1 of 4 bottles) with Staph warneri; contaminant. Repeat blood cultures NGT No prior urine cultures to assist with antibiotic guidance. Continue Zosyn. Day #4 D/C Vanc; received 3 days of therapy. Merchant catheter has been replaced. (3) Anemia Qualifiers: Anemia type: iron deficiency Is this a current diagnosis for this admission?: Yes Plan: Secondary to chronic disease and mild iron deficiency Anemia panel reveals iron deficiency Hemoglobin is overall stable (slight downward trend from 10.6-> 8.6-> 9.1-> 8.1- > 9.2). No evidence of active bleeding at this time. Continue daily iron and multivitamin supplementation. We will follow CBC. (4) Hypokalemia Is this a current diagnosis for this admission?: Yes Plan: Replete. Follow-up chemistry. (5) Hypomagnesemia Is this a current diagnosis for this admission?: Yes Plan: Replete Follow-up chemistry. (6) Immunocompromised state due to drug therapy Is this a current diagnosis for this admission?: Yes Plan: Patient on tacrolimus with renal transplant. Patient's has presented the medications from home to continue. Cultures and antibiotics as above. (7) Hypoalbuminemia Is this a current diagnosis for this admission?: Yes Plan: Albumin 2.1 motion picture projectionist is consulted; have reviewed notes. Continue MVI and iron supplement. Will add Vit C and Zinc. Will add Boost to trays. - Time Time Spent with patient: 25-34 minutes Medications reviewed and adjusted accordingly: Yes Anticipated discharge: SNF
[2020-02-04] MEDS ORDERED: ALBUMIN HUMAN 12.5 GM/50 ML RTUINJ IV ONE (17:50)
[2020-02-04] MEDS: ALBUMIN HUMAN 12.5 GM/50 ML RTUINJ IV SCH ×4 (17:53→20:11)
[2020-02-05] MEDS: PIPERACILLIN SODIUM/TAZOBACTAM 3.375 GM in NORMAL SALINE 100 ML IV SCH ×3 (00:07→11:15)
[2020-02-05] MEDS: IPRATROPIUM/ALBUTEROL 0.5-2.5 MG/3 ML AMPUL NEB SCH ×4 (01:35→23:51)
[2020-02-05] MEDS: DILTIAZEM HCL 30 MG TABLET PO SCH ×3 (05:34→21:43)
[2020-02-05] MEDS: LEVOTHYROXINE SODIUM 0.025 MG TABLET PO SCH (05:34)
[2020-02-05] MEDS: LEVOTHYROXINE SODIUM 0.1 MG TABLET PO SCH (05:34)
[2020-02-05 05:43] LABS: HEMATOCRIT 24.8 % (37.9-51.0); HEMOGLOBIN 8.2 g/dL (13.5-17.0); MEAN CORPUSCULAR VOLUME 76 fl (80-97); PLATELET COUNT 498 10^3/uL (150-450); RED BLOOD COUNT 3.27 10^6/uL (4.35-5.55); RED CELL DISTRIBUTION WIDTH 21.6 % (11.5-14.0); WHITE BLOOD COUNT 12.2 10^3/uL (4.0-10.5)
[2020-02-05 06:13] LABS: ANION GAP 7 (5-19); BLOOD UREA NITROGEN 24 mg/dL (7-20); CALCIUM 7.7 mg/dL (8.4-10.2); CARBON DIOXIDE 26 mmol/L (22-30); CHLORIDE 104 mmol/L (98-107); GLUCOSE 201 mg/dL (75-110); POTASSIUM 3.5 mmol/L (3.6-5.0)
[2020-02-05] MEDS: BUMETANIDE 1 MG TABLET PO SCH ×2 (09:55→16:08)
[2020-02-05] MEDS: ZINC SULFATE 220 MG CAPSULE PO SCH (09:55)
[2020-02-05] MEDS: INSULIN LISPRO 100 UNIT/ML 3 ML VIAL SUBCUT SCH ×4 (09:55→21:43)
[2020-02-05] MEDS: FERROUS SULFATE 325 MG TABLET PO SCH (09:56)
[2020-02-05] MEDS: VENLAFAXINE HCL 37.5 MG CAP.SR.24H PO SCH (09:56)
[2020-02-05] MEDS: MULTIVITAMIN TABLET PO SCH (09:56)
[2020-02-05] MEDS: RISPERIDONE 0.25 MG TABLET PO SCH ×2 (09:56→17:48)
[2020-02-05] MEDS: APIXABAN 5 MG TABLET PO SCH ×2 (09:56→17:48)
[2020-02-05] MEDS: TAMSULOSIN HCL 0.4 MG CAP.SR.24H PO SCH (09:56)
[2020-02-05] MEDS: ASCORBIC ACID 500 MG TABLET PO SCH (09:56)
[2020-02-05] MEDS: GABAPENTIN 100 MG CAPSULE PO SCH ×3 (09:56→17:48)
[2020-02-05] MEDS: DOCUSATE SODIUM 100 MG CAPSULE PO SCH (09:57)
[2020-02-05] MEDS: ISOSORBIDE DINITRATE 5 MG TABLET PO SCH ×3 (09:57→17:48)
[2020-02-05] MEDS: COLLAGENASE CLOSTRIDIUM HIST. OINT 30 GM TOP SCH ×2 (09:57→21:44)
[2020-02-05] MEDS: PREDNISONE 5 MG TABLET PO SCH (09:57)
[2020-02-05] MEDS: BUSPIRONE HCL 10 MG TABLET PO SCH (13:05)
--- NOTE | 2020-02-05 15:49 | PDOC PROGRESS REPORT ---
Subjective Progress Note for:: 02/05/20 Subjective:: LAURA CALVILLO is a 75 [facility] old male jail resident with an extensive partial past medical history of blindness, dementia, renal transplant on tacrolimus, stroke, bedbound state, atrial fibrillation on Cardizem and Eliquis, congestive heart failure, insulin-dependent diabetes, bilateral heel ulcer and suprapubic catheter admitted for acute metabolic encephalopathy secondary to UTI. Patient was seen on afternoon rounds. He was found sitting up in bed, c omfortably, on room air. He is awake and oriented to self. He does have delayed responses with intermittent confusion; but answered all questions for me appropriately and was able to follow directions. He specifically denies fever, chest pain, dyspnea, abdominal pain, and nausea. He denies pain. No concerns per nursing. Reason For Visit: UTI SEPSIS HYPOGLYCEMIA Physical Exam Vital Signs: Temp Pulse Resp BP Pulse Ox 98.3 F 95 18 130/61 H 94 02/05/20 12:41 02/05/20 12:41 02/05/20 12:41 02/05/20 12:41 02/05/20 12:41 Intake & Output 02/04/20 02/05/20 02/06/20 06:59 06:59 06:59 Intake Total 700 1179 100 Output Total 1500 4200 Balance -800 -3021 100 Weight 91 kg 89.1 kg General appearance: PRESENT: no acute distress, cooperative, hard of hearing, well-developed, well-nourished Head exam: PRESENT: atraumatic, normocephalic Eye exam: PRESENT: conjunctiva pink, EOMI, PERRLA, other - asymetric pupils. ABSENT: scleral icterus Ear exam: PRESENT: normal external ear exam Mouth exam: PRESENT: moist, tongue midline Teeth exam: PRESENT: poor dentation Respiratory exam: PRESENT: clear to auscultation ritesh, symmetrical, unlabored, other - Room air. ABSENT: rales, rhonchi, wheezes Cardiovascular exam: PRESENT: RRR. ABSENT: diastolic murmur, rubs, systolic murmur Pulses: PRESENT: normal dorsalis pedis pul Vascular exam: PRESENT: normal capillary refill GI/Abdominal exam: PRESENT: normal bowel sounds, soft, other - Ventral hernia, suprapubic catheter. ABSENT: distended, guarding, mass, organolmegaly, rebound, tenderness Rectal exam: PRESENT: deferred Extremities exam: PRESENT: full ROM. ABSENT: calf tenderness, clubbing, pedal edema Neurological exam: PRESENT: alert, awake, oriented to person, oriented to place, oriented to time, oriented to situation, CN II-XII grossly intact. ABSENT: motor sensory deficit Psychiatric exam: PRESENT: appropriate affect, normal mood. ABSENT: homicidal ideation, suicidal ideation Skin exam: PRESENT: dry, warm, other - Bilateral stage II heel ulcers with sloughing from 3-7 o'clock on the left and from 3-6 on the right foot. Granulation tissue noted on both. Serous drainage. Stage II sacral decubitus, stage II to his left hip measuring 4 x 4 cm. ABSENT: cyanosis, rash Results Laboratory Results: 02/05/20 05:26 02/05/20 05:26 02/05/20 02/05/20 05:26 05:26 WBC 12.2 H RBC 3.27 L Hgb 8.2 L Hct 24.8 L MCV 76 L MCH 25.0 L MCHC 33.0 RDW 21.6 H Plt Count 498 H Sodium 137.4 Potassium 3.5 L Chloride 104 Carbon Dioxide 26 Anion Gap 7 BUN 24 H Creatinine 1.20 Est GFR ( Amer) > 60 Glucose 201 H Calcium 7.7 L 01/30/20 21:00 Blood Blood Culture - Final NO GROWTH IN 5 DAYS Impressions: Chest X-Ray 02/04/20 00:00 IMPRESSION: Relatively stable appearance. Persistent left basilar changes as before. Assessment and Plan - Diagnosis (1) Encephalopathy Is this a current diagnosis for this admission?: Yes Plan: Acute metabolic encephalopathy secondary to urinary tract infection, present on arrival. Resolved; now alert and oriented to self, place, situation. He answers all q uestions appropriately, socially appropriate and conversational today. Patient is admitted to [facility] on continuous cardiac telemetry. Discontinued Zosyn; received 5 days of therapy. Start p.o. Augmentin. Discontinued Vanc; received Day #3 Supportive care/fall precautions. Remaining management as below. (2) Urinary tract infection Qualifiers: Urinary tract infection type: catheter-associated UTI Indwelling urinary catheter type: unspecified Is this a current diagnosis for this admission?: Yes Plan: Complicated UTI in immunocompromised patient with chronic indwelling suprapubic catheter prone to frequent infections. Urine cultures shows charlee, however, culture was obtained 48 hours following start of IV antibiotics. Blood cultures (01/30/2020; 1 of 4 bottles) with Staph warneri; contaminant. Repeat blood cultures NGT No prior urine cultures to assist with antibiotic guidance. DC Zosyn; received 4 days of therapy. Transition to p.o. Augmentin for additional 6; total 10 days of therapy. D/C Vanc; received 3 days of therapy. Difflucan x 3 days. Merchant catheter has been replaced. (3) Anemia Qualifiers: Anemia type: iron deficiency Is this a current diagnosis for this admission?: Yes Plan: Secondary to chronic disease and mild iron deficiency Anemia panel reveals iron deficiency Hemoglobin is overall stable (slight downward trend from 10.6-> 8.6-> 9.1-> 8.1-> 9.2-> 8.2). No evidence of active bleeding at this time. Continue daily iron and multivitamin supplementation. We will follow CBC. (4) Hypokalemia Is this a current diagnosis for this admission?: Yes Plan: Replete. Follow-up chemistry. (5) Hypomagnesemia Is this a current diagnosis for this admission?: Yes Plan: Replete Follow-up chemistry. (6) Immunocompromised state due to drug therapy Is this a current diagnosis for this admission?: Yes Plan: Patient on tacrolimus with renal transplant. Patient's has presented the medications from home to continue. Cultures and antibiotics as above. (7) Hypoalbuminemia Is this a current diagnosis for this admission?: Yes Plan: Albumin 2.1 informatics physician liaison is consulted; have reviewed notes. Continue MVI and iron supplement. Will add Vit C and Zinc. Will add Boost to trays. Received albumin 50 gm yesterday - Time Time Spent with patient: 35 or more minutes Medications reviewed and adjusted accordingly: Yes Anticipated discharge: Home with Homehealth - Spoke w/ patient's . Would like him to come home w/ HH services r/t COVID19. Within: within 24 hours
[2020-02-05] MEDS: ACETAMINOPHEN 325 MG TABLET PO PRN (20:15)
[2020-02-05] MEDS: AMOXICILLIN TR/POT CLAVULANATE 500-125 MG TAB PO SCH (21:43)
[2020-02-05] MEDS ORDERED: CIPROFLOXACIN HCL 500 MG TABLET PO SCH (22:00)
[2020-02-06] MEDS: AMOXICILLIN TR/POT CLAVULANATE 500-125 MG TAB PO SCH (05:23)
[2020-02-06] MEDS: DILTIAZEM HCL 30 MG TABLET PO SCH ×3 (05:23→22:06)
[2020-02-06] MEDS: LEVOTHYROXINE SODIUM 0.025 MG TABLET PO SCH (05:23)
[2020-02-06] MEDS: LEVOTHYROXINE SODIUM 0.1 MG TABLET PO SCH (05:23)
[2020-02-06 07:19] LABS: ARTERIAL BLOOD BASE EXCESS 1.1 mmol/L; ARTERIAL BLOOD FIO2 4L; ARTERIAL BLOOD H2CO3 1.07 mmol/L (1.05-1.35); ARTERIAL BLOOD HCO3 24.6 mmol/L (20-24); ARTERIAL BLOOD O2 SATURATION 93.8 % (94-98); ARTERIAL BLOOD PCO2 35.5 mmHg (35-45); ARTERIAL BLOOD PH 7.46 (7.35-7.45); ARTERIAL BLOOD PO2 64.7 mmHg (80-100); ARTERIAL BLOOD TOTAL CO2 25.7 mmol/L (23-27)
[2020-02-06] MEDS: IPRATROPIUM/ALBUTEROL 0.5-2.5 MG/3 ML AMPUL NEB SCH ×2 (07:36→20:39)
[2020-02-06 07:43] LABS: ANION GAP 10 (5-19); BLOOD UREA NITROGEN 29 mg/dL (7-20); CARBON DIOXIDE 26 mmol/L (22-30); CHLORIDE 101 mmol/L (98-107); GLUCOSE 212 mg/dL (75-110); POTASSIUM 3.8 mmol/L (3.6-5.0)
[2020-02-06 07:59] LABS: HEMATOCRIT 28.7 % (37.9-51.0); HEMOGLOBIN 9.4 g/dL (13.5-17.0); MEAN CORPUSCULAR HEMOGLOBIN 24.6 pg (27.0-33.4); MEAN CORPUSCULAR HGB CONC 32.7 g/dL (32.0-36.0); MEAN CORPUSCULAR VOLUME 75 fl (80-97); PLATELET COUNT 556 10^3/uL (150-450); RED BLOOD COUNT 3.82 10^6/uL (4.35-5.55); RED CELL DISTRIBUTION WIDTH 22.2 % (11.5-14.0); WHITE BLOOD COUNT 16.6 10^3/uL (4.0-10.5)
[2020-02-06] MEDS: INSULIN LISPRO 100 UNIT/ML 3 ML VIAL SUBCUT SCH ×4 (08:41→22:06)
--- NOTE | 2020-02-06 08:45 | RADIOLOGY REPORT (SQ) ---
EXAM DESCRIPTION: CHEST SINGLE VIEW COMPLETED DATE/TIME: 02/06/2020 8:35 am REASON FOR STUDY: worsening hypoxia COMPARISON: 02/04/2020 NUMBER OF VIEWS: One view. TECHNIQUE: Single frontal radiographic image of the chest acquired. LIMITATIONS: None. FINDINGS: LUNGS AND PLEURA: Stable appearance. MEDIASTINUM AND HILAR STRUCTURES: Stable heart size and mediastinal structures. HEART AND VASCULAR STRUCTURES: Stable appearance. BONES: No acute findings. HARDWARE: None in the chest. OTHER: No other significant finding. IMPRESSION: STABLE APPEARANCE OF THE CHEST. TECHNICAL DOCUMENTATION: JOB ID: [id number] 2010 [employer]- All Rights Reserved Reading location - IP/workstation name: [email or web address]
[2020-02-06] MEDS: FLUCONAZOLE 100 MG TABLET PO SCH (09:45)
[2020-02-06] MEDS: ASCORBIC ACID 500 MG TABLET PO SCH (09:46)
[2020-02-06] MEDS: MULTIVITAMIN TABLET PO SCH (09:47)
[2020-02-06] MEDS: PREDNISONE 5 MG TABLET PO SCH (09:47)
[2020-02-06] MEDS: TAMSULOSIN HCL 0.4 MG CAP.SR.24H PO SCH (09:49)
[2020-02-06] MEDS: GABAPENTIN 100 MG CAPSULE PO SCH ×3 (09:49→18:33)
[2020-02-06] MEDS: FERROUS SULFATE 325 MG TABLET PO SCH (09:50)
[2020-02-06] MEDS: VENLAFAXINE HCL 37.5 MG CAP.SR.24H PO SCH (09:51)
[2020-02-06] MEDS: RISPERIDONE 0.25 MG TABLET PO SCH ×2 (09:52→18:33)
[2020-02-06] MEDS: APIXABAN 5 MG TABLET PO SCH ×2 (09:53→18:33)
[2020-02-06] MEDS: BUMETANIDE 1 MG TABLET PO SCH ×2 (09:54→18:33)
[2020-02-06] MEDS: DOCUSATE SODIUM 100 MG CAPSULE PO SCH (09:54)
[2020-02-06] MEDS: ISOSORBIDE DINITRATE 5 MG TABLET PO SCH ×3 (09:55→18:32)
[2020-02-06] MEDS: GUAIFENESIN SYRP 200 MG/10 ML UDC PO SCH ×4 (09:58→22:06)
[2020-02-06] MEDS: ZINC SULFATE 220 MG CAPSULE PO SCH (10:02)
[2020-02-06] MEDS: COLLAGENASE CLOSTRIDIUM HIST. OINT 30 GM TOP SCH (10:03)
[2020-02-06] MEDS ORDERED: LEVOFLOXACIN 750 MG/D5W RTU 750 MG/150 ML RTUPB IV SCH (12:00)
[2020-02-06 12:04] LABS: PATH REVIEW PATHOLOGIST REVIEWED
--- NOTE | 2020-02-06 14:36 | PDOC PROGRESS REPORT ---
Subjective Progress Note for:: 02/06/20 Subjective:: LAURA CALVILLO is a 75 year old male longterm resident with an extensive partial past medical history of blindness, dementia, renal transplant on tacrolimus, stroke, bedbound state, atrial fibrillation on Cardizem and Eliquis, congestive heart failure, insulin-dependent diabetes, bilateral heel ulcer and suprapubic catheter admitted for acute metabolic encephalopathy secondary to UTI. Patient was seen on morning rounds. He was found sitting up in bed, com fortably, on supplemental oxygen via NC. He is awake and oriented to self. He does have delayed responses with intermittent confusion; but answered all questions for me appropriately and was able to follow directions. He tells me that he is feeling well today, slightly tired. Otherwise he denies shortness of breath and cough. He further denies abdominal discomfort, nausea, vomiting, diarrhea, and constipation. Unfortunately, he is unable to provide any history/symptoms that would assist in determining the source of his fever overnight. No concerns per nursing. Reason For Visit: UTI SEPSIS HYPOGLYCEMIA Physical Exam Vital Signs: Temp Pulse Resp BP Pulse Ox 98.3 F 94 14 154/63 H 95 02/06/20 03:55 02/06/20 07:36 02/06/20 07:36 02/06/20 03:55 02/06/20 07:36 Intake & Output 02/05/20 02/06/20 02/07/20 06:59 06:59 06:59 Intake Total 1179 1300 Output Total 4200 3800 Balance -3021 -2500 Weight 89.1 kg 87.7 kg General appearance: PRESENT: no acute distress, cooperative, hard of hearing, well-developed, well-nourished, other - Overweight Head exam: PRESENT: atraumatic, normocephalic Eye exam: PRESENT: conjunctiva pink, EOMI, PERRLA - Asymmetric pupil. ABSENT: scleral icterus Mouth exam: PRESENT: moist, tongue midline Teeth exam: PRESENT: poor dentation Respiratory exam: PRESENT: clear to auscultation ritesh, decreased breath sounds - Diminished bilaterally, symmetrical, unlabored, other. ABSENT: rales, rhonchi, wheezes Cardiovascular exam: PRESENT: RRR. ABSENT: diastolic murmur, rubs, systolic murmur Pulses: PRESENT: normal dorsalis pedis pul Vascular exam: PRESENT: normal capillary refill GI/Abdominal exam: PRESENT: normal bowel sounds, soft, other - Ventral hernia, suprapubic catheter. ABSENT: distended, guarding, mass, organolmegaly, rebound, tenderness Rectal exam: PRESENT: deferred Extremities exam: PRESENT: full ROM. ABSENT: calf tenderness, clubbing, pedal edema Neurological exam: PRESENT: alert, awake, oriented to person, oriented to place, oriented to time, oriented to situation, CN II-XII grossly intact. ABSENT: motor sensory deficit Psychiatric exam: PRESENT: appropriate affect, normal mood. ABSENT: homicidal ideation, suicidal ideation Skin exam: PRESENT: dry, warm, other - Bilateral stage II heel ulcers with sloughing from 3-7 o'clock on the left and from 3-6 on the right foot. Granulation tissue noted on both. Serous drainage. Stage II sacral decubitus measuring 2x3, stage II to his left hip measuring 4 x 4 cm.. ABSENT: cyanosis, intact, rash Results Laboratory Results: 02/06/20 06:22 02/06/20 06:22 02/06/20 02/06/20 02/06/20 06:22 06:22 06:52 WBC 16.6 H RBC 3.82 L Hgb 9.4 L Hct 28.7 L MCV 75 L MCH 24.6 L MCHC 32.7 RDW 22.2 H Plt Count 556 H Carbonic Acid 1.07 HCO3/H2CO3 Ratio 22:1 ABG pH 7.46 H ABG pCO2 35.5 ABG pO2 64.7 L ABG HCO3 24.6 H ABG O2 Saturation 93.8 L ABG Base Excess 1.1 FiO2 4L Sodium 137.4 Potassium 3.8 Chloride 101 Carbon Dioxide 26 Anion Gap 10 BUN 29 H Creatinine 1.31 H Est GFR ( Amer) > 60 Glucose 212 H Calcium 8.0 L Impressions: Chest X-Ray 02/06/20 00:00 IMPRESSION: STABLE APPEARANCE OF THE CHEST. Assessment and Plan - Diagnosis (1) Encephalopathy Is this a current diagnosis for this admission?: Yes Plan: Acute metabolic encephalopathy secondary to urinary tract infection, present on arrival. Resolved; now alert and oriented to self, place, situation. He answers all questions appropriately, socially appropriate and conversational today. Patient is admitted to [facility] on continuous cardiac telemetry. Discontinued Zosyn; received 5 days of therapy. Recieved augmentin x 1 dose. Return to Zosyn today r/t fever. Discontinued Vanc; received Day #3 Supportive care/fall precautions. Remaining management as below. (2) Urinary tract infection Qualifiers: Urinary tract infection type: catheter-associated UTI Indwelling urinary catheter type: unspecified Is this a current diagnosis for this admission?: Yes Plan: Complicated UTI in immunocompromised patient with chronic indwelling suprapubic catheter prone to frequent infections. Urine cultures shows charlee, however, culture was obtained 48 hours following start of IV antibiotics. Blood cultures (01/30/2020; 1 of 4 bottles) with Staph warneri; contaminant. Repeat blood cultures NGT No prior urine cultures to assist with antibiotic guidance. Discontinued Zosyn; received 5 days of therapy. Recieved augmentin x 1 dose. Return to Zosyn today r/t fever. D/C Vanc; received 3 days of therapy. Difflucan x 3 days. Merchant catheter has been replaced. (3) Anemia Qualifiers: Anemia type: iron deficiency Is this a current diagnosis for this admission?: Yes Plan: Secondary to chronic disease and mild iron deficiency Anemia panel reveals iron deficiency Hemoglobin is overall stable (slight downward trend from 10.6-> 8.6-> 9.1-> 8.1- > 9.2-> 8.2). No evidence of active bleeding at this time. Continue daily iron and multivitamin supplementation. We will follow CBC. (4) Hypokalemia Is this a current diagnosis for this admission?: Yes Plan: Replete. Follow-up chemistry. (5) Hypomagnesemia Is this a current diagnosis for this admission?: Yes Plan: Replete Follow-up chemistry. (6) Immunocompromised state due to drug therapy Is this a current diagnosis for this admission?: Yes Plan: Patient on tacrolimus with renal transplant. Patient's has presented the medications from home to continue. Cultures and antibiotics as above. (7) Hypoalbuminemia Is this a current diagnosis for this admission?: Yes Plan: Albumin 2.1 ict managers is consulted; have reviewed notes. Continue MVI and iron supplement. Will add Vit C and Zinc. Will add Boost to trays. Received albumin 50 gm (8) Fever Qualifiers: Fever type: unspecified Qualified Code(s): R50.9 - Fever, unspecified Is this a current diagnosis for this admission?: Yes Plan: Temp 102.2 overnight. Leukocytosis has also increased from 12.2-> 16.6. Chest x-ray is unremarkable. Urinalysis is pending. Wounds continue to look improved as compared to time of admission. No clear source for worsening infection, although, his antibiotics have been gradually de-escalated over the last 3 days. We will resume IV Zosyn. Add Levaquin as the patient's 1 blood culture bottle positive for staph urinary was sensitive to Levaquin. We will obtain repeat blood cultures during next febrile episode. Consider resuming vancomycin - Time Time Spent with patient: 35 or more minutes Medications reviewed and adjusted accordingly: Yes Anticipated discharge: Home with Homehealth
[2020-02-06] MEDS: BUSPIRONE HCL 10 MG TABLET PO SCH (15:14)
[2020-02-06] MEDS: PIPERACILLIN SODIUM/TAZOBACTAM 3.375 GM in NORMAL SALINE 100 ML IV SCH (18:41)
[2020-02-06] MEDS ORDERED: VANCOMYCIN HCL 1,000 MG in DEXTROSE 5%-WATER 250 ML IV ONE (19:27)
[2020-02-06] MEDS ORDERED: VANCOMYCIN HCL 0 MG in DEXTROSE 5%-WATER 250 ML IV NR (19:30)
[2020-02-06] MEDS ORDERED: CIPROFLOXACIN 400 MG/D5W RTU 400 MG/200 ML RTUPB IV SCH (22:00)
[2020-02-06] MEDS: VANCOMYCIN HCL 1,500 MG in DEXTROSE 5%-WATER 250 ML IV SCH (22:41)
[2020-02-07] MEDS: PIPERACILLIN SODIUM/TAZOBACTAM 3.375 GM in NORMAL SALINE 100 ML IV SCH ×4 (01:01→17:10)
[2020-02-07] MEDS: COLLAGENASE CLOSTRIDIUM HIST. OINT 30 GM TOP SCH ×3 (01:03→22:05)
[2020-02-07] MEDS: DILTIAZEM HCL 30 MG TABLET PO SCH ×3 (05:52→22:04)
[2020-02-07] MEDS: LEVOTHYROXINE SODIUM 0.025 MG TABLET PO SCH (05:52)
[2020-02-07] MEDS: LEVOTHYROXINE SODIUM 0.1 MG TABLET PO SCH (05:52)
[2020-02-07 06:25] LABS: ABSOLUTE BASOPHILS # (AUTO) 0.1 10^3/uL (0.0-0.2); ABSOLUTE EOSINOPHILS # (AUTO) 0.2 10^3/uL (0.0-0.6); ABSOLUTE LYMPHOCYTES (AUTO) 1.4 10^3/uL (0.5-4.7); ABSOLUTE MONOCYTES (AUTO) 1.3 10^3/uL (0.1-1.4); ABSOLUTE NEUT (AUTO) 10.9 10^3/uL (1.7-8.2); BASOPHILS % (AUTO) 0.5 % (0-2); EOSINOPHILS % (AUTO) 1.2 % (0-6); HEMATOCRIT 26.6 % (37.9-51.0); HEMOGLOBIN 8.8 g/dL (13.5-17.0); LYMPHOCYTES % (AUTO) 9.8 % (13-45); MEAN CORPUSCULAR HEMOGLOBIN 24.7 pg (27.0-33.4); MEAN CORPUSCULAR VOLUME 75 fl (80-97); MONOCYTES % (AUTO) 9.6 % (3-13); PLATELET COUNT 479 10^3/uL (150-450); RED BLOOD COUNT 3.56 10^6/uL (4.35-5.55); RED CELL DISTRIBUTION WIDTH 21.9 % (11.5-14.0); SEGMENTED NEUTROPHILS % (AUTO) 78.9 % (42-78); TOTAL CELLS COUNTED % (AUTO) 100 %; WHITE BLOOD COUNT 13.8 10^3/uL (4.0-10.5)
[2020-02-07 06:36] LABS: ALBUMIN 2.7 g/dL (3.5-5.0); ALKALINE PHOSPHATASE 165 U/L (38-126); ANION GAP 8 (5-19); ASPARTATE AMINO TRANSFERASE 86 U/L (17-59); BILIRUBIN,DIRECT 0.4 mg/dL (0.0-0.4); BILIRUBIN,TOTAL 0.5 mg/dL (0.2-1.3); BLOOD UREA NITROGEN 39 mg/dL (7-20); CALCIUM 8.1 mg/dL (8.4-10.2); CARBON DIOXIDE 30 mmol/L (22-30); CHLORIDE 101 mmol/L (98-107); GLUCOSE 136 mg/dL (75-110); POTASSIUM 3.7 mmol/L (3.6-5.0); TOTAL PROTEIN 5.9 g/dL (6.3-8.2)
[2020-02-07] MEDS ORDERED: BUMETANIDE 1 MG TABLET PO SCH (08:00)
[2020-02-07] MEDS: INSULIN LISPRO 100 UNIT/ML 3 ML VIAL SUBCUT SCH ×4 (08:10→22:05)
[2020-02-07] MEDS: BUMETANIDE 1 MG TABLET PO SCH ×2 (08:27→17:09)
[2020-02-07] MEDS: IPRATROPIUM/ALBUTEROL 0.5-2.5 MG/3 ML AMPUL NEB SCH ×2 (08:27→20:51)
[2020-02-07] MEDS: GUAIFENESIN SYRP 200 MG/10 ML UDC PO SCH ×4 (09:12→22:04)
[2020-02-07] MEDS: TAMSULOSIN HCL 0.4 MG CAP.SR.24H PO SCH (09:13)
[2020-02-07] MEDS: RISPERIDONE 0.25 MG TABLET PO SCH ×2 (09:13→17:08)
[2020-02-07] MEDS: MULTIVITAMIN TABLET PO SCH (09:13)
[2020-02-07] MEDS: APIXABAN 5 MG TABLET PO SCH ×2 (09:13→17:08)
[2020-02-07] MEDS: DOCUSATE SODIUM 100 MG CAPSULE PO SCH (09:13)
[2020-02-07] MEDS: ASCORBIC ACID 500 MG TABLET PO SCH (09:13)
[2020-02-07] MEDS: PREDNISONE 5 MG TABLET PO SCH (09:14)
[2020-02-07] MEDS: GABAPENTIN 100 MG CAPSULE PO SCH ×3 (09:14→17:09)
[2020-02-07] MEDS: FERROUS SULFATE 325 MG TABLET PO SCH (09:14)
[2020-02-07] MEDS: VENLAFAXINE HCL 37.5 MG CAP.SR.24H PO SCH (09:14)
[2020-02-07] MEDS: ISOSORBIDE DINITRATE 5 MG TABLET PO SCH ×3 (09:15→17:11)
[2020-02-07] MEDS: FLUCONAZOLE 100 MG TABLET PO SCH (09:15)
[2020-02-07] MEDS: ZINC SULFATE 220 MG CAPSULE PO SCH (09:24)
--- NOTE | 2020-02-07 12:00 | PDOC PROGRESS REPORT ---
Subjective Progress Note for:: 02/07/20 Reason For Visit: UTI SEPSIS HYPOGLYCEMIA 02/07/2020 [facility] with altered [facility] status secondary to suspected UTI. Fever and confusion Physical Exam Vital Signs: Temp Pulse Resp BP Pulse Ox 97.6 F 84 16 138/60 H 94 02/07/20 07:51 02/07/20 08:27 02/07/20 08:27 02/07/20 07:51 02/07/20 08:27 Pulse Oximeter Nocturnal Start: 02/06/20 10:44 Freq: RTQ4 Status: Hold Protocol: Document 02/07/20 03:45 LDI (Rec: 02/07/20 03:45 LDI [id number]) Nocturnal Pulse Oximetry Equipment Usage Equipment in Use Oxygen Delivery Method (includes room Room Air air) O2 Sat by Pulse Oximetry (92-100) 93 Continuous Pulse Oximeter Set Up No Continuous SpO2 Discontinued No Continuous SpO2 Machine # [id number] Intake & Output 02/06/20 02/07/20 02/08/20 06:59 06:59 06:59 Intake Total 1300 1407 100 Output Total 3800 1630 Balance -2500 -223 100 Weight 87.7 kg 87 kg General appearance: PRESENT: no acute distress Respiratory exam: PRESENT: clear to auscultation ritesh. ABSENT: rales, rhonchi, wheezes Cardiovascular exam: PRESENT: RRR. ABSENT: diastolic murmur, rubs, systolic murmur Neurological exam: PRESENT: alert, awake, oriented to person, oriented to place, oriented to time, CN II-XII grossly intact, other - Patient is unaware of his location i.e. being in a hospital. ABSENT: motor sensory deficit Psychiatric exam: PRESENT: unusual affect Results Laboratory Results: 02/07/20 05:28 02/07/20 05:28 02/07/20 02/07/20 05:28 05:28 WBC 13.8 H RBC 3.56 L Hgb 8.8 L Hct 26.6 L MCV 75 L MCH 24.7 L MCHC 33.0 RDW 21.9 H Plt Count 479 H Seg Neutrophils % 78.9 H Sodium 139.2 Potassium 3.7 Chloride 101 Carbon Dioxide 30 Anion Gap 8 BUN 39 H Creatinine 1.40 H Est GFR ( Amer) > 60 Glucose 136 H Calcium 8.1 L Total Bilirubin 0.5 AST 86 H Alkaline Phosphatase 165 H Total Protein 5.9 L Albumin 2.7 L Impressions: Chest X-Ray 02/06/20 00:00 IMPRESSION: STABLE APPEARANCE OF THE CHEST. Assessment and Plan - Diagnosis (1) Altered mental status Qualifiers: Altered mental status type: unspecified Qualified Code(s): R41.82 - Altered mental status, unspecified Is this a current diagnosis for this admission?: Yes (2) Fever Qualifiers: Fever type: unspecified Qualified Code(s): R50.9 - Fever, unspecified Is this a current diagnosis for this admission?: Yes (3) Leukocytosis Qualifiers: Leukocytosis type: unspecified Qualified Code(s): D72.829 - Elevated white blood cell count, unspecified Is this a current diagnosis for this admission?: Yes (4) Urinary tract infection Qualifiers: Urinary tract infection type: catheter-associated UTI Indwelling urinary catheter type: unspecified Is this a current diagnosis for this admission?: Yes - Plan Summary Summary: 02/07/2020 Temperature 97.6 pulse 81 blood pressure 138/60 O2 sat between 90 and 96% on 2 L nasal cannula Last time patient was febrile was yesterday at 1500 hrs, 101.3 Patient currently on Diflucan's and Zosyn and was also placed on vancomycin. Culture does appear to be sensitive to Levaquin tetracycline and vancomycin Urine is growing out yeast blood cultures growing out staph. On admission white blood cell count was 17.4 today it is down to 13.8 Flu swab on admission was negative We will continue with IV antibiotics, patient has been afebrile for 24 hours, when patient's white count continues to normalize will consider switching patient to p.o. Levaquin and p.o. Diflucan's - Time Time Spent with patient: 25-34 minutes
[2020-02-07 13:19] LABS: APPEARANCE,URINE SLIGHTLY-CLOUDY; BILIRUBIN,URINE NEGATIVE (NEGATIVE); COLOR,URINE YELLOW; GLUCOSE, URINE 150 mg/dL (NEGATIVE); KETONES,URINE NEGATIVE (NEGATIVE); PROTEIN,URINE NEGATIVE (NEGATIVE); UROBILINOGEN,URINE NEGATIVE mg/dL (<2.0)
[2020-02-07] MEDS: BUSPIRONE HCL 10 MG TABLET PO SCH (13:32)
[2020-02-07] MEDS: VANCOMYCIN HCL 1,500 MG in DEXTROSE 5%-WATER 250 ML IV SCH (22:04)
[2020-02-08] MEDS: PIPERACILLIN SODIUM/TAZOBACTAM 3.375 GM in NORMAL SALINE 100 ML IV SCH ×4 (01:15→17:46)
[2020-02-08] MEDS: BUMETANIDE 1 MG TABLET PO SCH ×2 (04:40→08:23)
[2020-02-08] MEDS: LEVOTHYROXINE SODIUM 0.025 MG TABLET PO SCH (05:23)
[2020-02-08] MEDS: DILTIAZEM HCL 30 MG TABLET PO SCH ×3 (05:23→22:54)
[2020-02-08] MEDS: LEVOTHYROXINE SODIUM 0.1 MG TABLET PO SCH (05:23)
[2020-02-08] MEDS: INSULIN LISPRO 100 UNIT/ML 3 ML VIAL SUBCUT SCH ×4 (08:24→22:54)
[2020-02-08] MEDS: ACETAMINOPHEN 325 MG TABLET PO PRN (08:26)
[2020-02-08] MEDS: IPRATROPIUM/ALBUTEROL 0.5-2.5 MG/3 ML AMPUL NEB SCH ×2 (08:32→20:16)
[2020-02-08] MEDS: RISPERIDONE 0.25 MG TABLET PO SCH ×2 (09:50→17:51)
[2020-02-08] MEDS: FERROUS SULFATE 325 MG TABLET PO SCH (09:50)
[2020-02-08] MEDS: GUAIFENESIN SYRP 200 MG/10 ML UDC PO SCH ×4 (09:50→22:54)
[2020-02-08] MEDS: MULTIVITAMIN TABLET PO SCH (09:51)
[2020-02-08] MEDS: TAMSULOSIN HCL 0.4 MG CAP.SR.24H PO SCH (09:51)
[2020-02-08] MEDS: DOCUSATE SODIUM 100 MG CAPSULE PO SCH (09:51)
[2020-02-08] MEDS: VENLAFAXINE HCL 37.5 MG CAP.SR.24H PO SCH (09:51)
[2020-02-08] MEDS: ISOSORBIDE DINITRATE 5 MG TABLET PO SCH ×3 (09:52→17:50)
[2020-02-08] MEDS: GABAPENTIN 100 MG CAPSULE PO SCH ×3 (09:52→17:51)
[2020-02-08] MEDS: ASCORBIC ACID 500 MG TABLET PO SCH (09:52)
[2020-02-08] MEDS: PREDNISONE 5 MG TABLET PO SCH (09:54)
[2020-02-08] MEDS: APIXABAN 5 MG TABLET PO SCH ×2 (09:55→17:51)
[2020-02-08] MEDS: COLLAGENASE CLOSTRIDIUM HIST. OINT 30 GM TOP SCH ×2 (09:55→22:55)
[2020-02-08] MEDS: FLUCONAZOLE 100 MG TABLET PO SCH (09:55)
[2020-02-08] MEDS: ZINC SULFATE 220 MG CAPSULE PO SCH (09:56)
[2020-02-08] MEDS: BUSPIRONE HCL 10 MG TABLET PO SCH (12:22)
--- NOTE | 2020-02-08 13:25 | PDOC PROGRESS REPORT ---
Subjective Progress Note for:: 02/08/20 Reason For Visit: UTI SEPSIS HYPOGLYCEMIA 02/08/2020 I asked the patient today if he was going home or back to the jail and he stated "I am going home." Patient tells me prior to admission he had been in the jail for approximately 1 week Vital signs today temperature 97.6 pulse is 88 and regular blood pressure stable 129/62 respirations are anywhere from 14-20 Oxygen saturation is 97% on either 1 or 2 L nasal cannula or even room air I have consulted physical therapy to come by and see him and see what his level of function is. I have never seen family in the room to talk with them to find out what his baseline activity is. White blood cell count on admission was 17.4 today it is 13.8 creatinine is stable 1.40 Urine cultures pending blood culture shows only 1 culture positive out of 4 and this is probably a contaminant. I can switch patient over to po Levaquin at the time of discharge. Urine culture should be reported out tomorrow Patient has been afebrile now x48 hours Physical Exam Vital Signs: Temp Pulse Resp BP Pulse Ox 97.6 F 92 16 129/62 H 91 L 02/08/20 08:14 02/08/20 08:32 02/08/20 08:32 02/08/20 03:58 02/08/20 08:32 Pulse Oximeter Nocturnal Start: 02/06/20 10:44 Freq: RTQ4 Status: Complete Protocol: Document 02/07/20 03:45 LDI (Rec: 02/07/20 03:45 LDI [id number]) Nocturnal Pulse Oximetry Equipment Usage Equipment in Use Oxygen Delivery Method (includes room Room Air air) O2 Sat by Pulse Oximetry (92-100) 93 Continuous Pulse Oximeter Set Up No Continuous SpO2 Discontinued No Continuous SpO2 Machine # [id number] Intake & Output 02/07/20 02/08/20 02/09/20 06:59 06:59 06:59 Intake Total 1407 1230 Output Total 1631 2795 Balance -223 -695 Weight 87 kg 87.3 kg Results Laboratory Results: 02/07/20 05:28 02/07/20 05:28 02/07/20 13:00 Urine Color YELLOW Urine Appearance SLIGHTLY-CLOUDY Urine pH 6.0 Ur Specific Ambrose 1.010 Urine Protein NEGATIVE Urine Glucose (UA) 150 H Urine Ketones NEGATIVE Urine Blood NEGATIVE Urine Nitrite Cancelled Ur Leukocyte Esterase Cancelled Urine WBC (Auto) Cancelled Urine RBC (Auto) 4 02/03/20 08:57 Blood Blood Culture - Final NO GROWTH IN 5 DAYS 02/03/20 07:55 Blood Blood Culture - Final NO GROWTH IN 5 DAYS Impressions: Chest X-Ray 02/06/20 00:00 IMPRESSION: STABLE APPEARANCE OF THE CHEST. Assessment and Plan - Diagnosis (1) Altered mental status Qualifiers: Altered mental status type: unspecified Qualified Code(s): R41.82 - Altered mental status, unspecified Is this a current diagnosis for this admission?: Yes (2) Fever Qualifiers: Fever type: unspecified Qualified Code(s): R50.9 - Fever, unspecified Is this a current diagnosis for this admission?: Yes (3) Leukocytosis Qualifiers: Leukocytosis type: unspecified Qualified Code(s): D72.829 - Elevated white blood cell count, unspecified Is this a current diagnosis for this admission?: Yes (4) Urinary tract infection Qualifiers: Urinary tract infection type: catheter-associated UTI Indwelling urinary catheter type: unspecified Is this a current diagnosis for this admission?: Yes - Plan Summary Summary: 02/07/2020 Temperature 97.6 pulse 81 blood pressure 138/60 O2 sat between 90 and 96% on 2 L nasal cannula Last time patient was febrile was yesterday at 1500 hrs, 101.3 Patient currently on Diflucan's and Zosyn and was also placed on vancomycin. Culture does appear to be sensitive to Levaquin tetracycline and vancomycin Urine is growing out yeast blood cultures growing out staph. On admission white blood cell count was 17.4 today it is down to 13.8 Flu swab on admission was negative We will continue with IV antibiotics, patient has been afebrile for 24 hours, when patient's white count continues to normalize will consider switching patient to p.o. Levaquin and p.o. Diflucan's - Time Time Spent with patient: 25-34 minutes
[2020-02-08] MEDS: VANCOMYCIN HCL 1,500 MG in DEXTROSE 5%-WATER 250 ML IV SCH (22:54)
[2020-02-09] MEDS: PIPERACILLIN SODIUM/TAZOBACTAM 3.375 GM in NORMAL SALINE 100 ML IV SCH ×4 (01:04→17:21)
[2020-02-09] MEDS: LEVOTHYROXINE SODIUM 0.1 MG TABLET PO SCH (05:25)
[2020-02-09] MEDS: LEVOTHYROXINE SODIUM 0.025 MG TABLET PO SCH (05:25)
[2020-02-09] MEDS: DILTIAZEM HCL 30 MG TABLET PO SCH ×2 (05:25→13:37)
[2020-02-09] MEDS: IPRATROPIUM/ALBUTEROL 0.5-2.5 MG/3 ML AMPUL NEB SCH (08:01)
[2020-02-09] MEDS: BUMETANIDE 1 MG TABLET PO SCH ×2 (08:34→17:20)
[2020-02-09] MEDS: INSULIN LISPRO 100 UNIT/ML 3 ML VIAL SUBCUT SCH ×3 (08:34→17:20)
[2020-02-09] MEDS: MULTIVITAMIN TABLET PO SCH (11:05)
[2020-02-09] MEDS: PREDNISONE 5 MG TABLET PO SCH (11:05)
[2020-02-09] MEDS: RISPERIDONE 0.25 MG TABLET PO SCH ×2 (11:05→17:20)
[2020-02-09] MEDS: TAMSULOSIN HCL 0.4 MG CAP.SR.24H PO SCH (11:05)
[2020-02-09] MEDS: VENLAFAXINE HCL 37.5 MG CAP.SR.24H PO SCH (11:05)
[2020-02-09] MEDS: GUAIFENESIN SYRP 200 MG/10 ML UDC PO SCH ×3 (11:05→17:20)
[2020-02-09] MEDS: FERROUS SULFATE 325 MG TABLET PO SCH (11:05)
[2020-02-09] MEDS: ASCORBIC ACID 500 MG TABLET PO SCH (11:05)
[2020-02-09] MEDS: DOCUSATE SODIUM 100 MG CAPSULE PO SCH (11:05)
[2020-02-09] MEDS: GABAPENTIN 100 MG CAPSULE PO SCH ×3 (11:05→17:19)
[2020-02-09] MEDS: ISOSORBIDE DINITRATE 5 MG TABLET PO SCH ×3 (11:05→17:20)
[2020-02-09] MEDS: ZINC SULFATE 220 MG CAPSULE PO SCH (11:05)
[2020-02-09] MEDS: APIXABAN 5 MG TABLET PO SCH ×2 (11:05→17:19)
[2020-02-09] MEDS: COLLAGENASE CLOSTRIDIUM HIST. OINT 30 GM TOP SCH (11:06)
[2020-02-09] MEDS: BUSPIRONE HCL 10 MG TABLET PO SCH (12:35)
[2020-02-09 15:13] VITALS: BP 106/35
--- NOTE | 2020-02-09 18:08 | PDOC DISCHARGE SUMMARY ---
Impression - Admit/DC Date/PCP Admission Date/Primary Care Provider: 01/31/20 00:00 LAURA ERVIN MD Discharge Date: 02/09/20 - Discharge Diagnosis (1) Altered mental status Is this a current diagnosis for this admission?: Yes (2) Fever Is this a current diagnosis for this admission?: Yes (3) Leukocytosis Is this a current diagnosis for this admission?: Yes (4) Urinary tract infection Is this a current diagnosis for this admission?: Yes (5) Hypoglycemia Is this a current diagnosis for this admission?: Yes (6) Sepsis Is this a current diagnosis for this admission?: Yes - Assessment Summary: 02/07/2020 Temperature 97.6 pulse 81 blood pressure 138/60 O2 sat between 90 and 96% on 2 L nasal cannula Last time patient was febrile was yesterday at 1500 hrs, 101.3 Patient currently on Diflucan's and Zosyn and was also placed on vancomycin. Culture does appear to be sensitive to Levaquin tetracycline and vancomycin Urine is growing out yeast blood cultures growing out staph. On admission white blood cell count was 17.4 today it is down to 13.8 Flu swab on admission was negative We will continue with IV antibiotics, patient has been afebrile for 24 hours, when patient's white count continues to normalize will consider switching patient to p.o. Levaquin and p.o. Diflucan's 02/08/2020 Temperature 97.6 pulse 88 116/39 Labs are stable and unchanged Patient is to be discharged home tomorrow. Both patient and his want him to go home instead of a senior living facility or to rehab Patient will be switched over to p.o. antibiotics at the time of discharge 02/09/2020 Patient was discharged home today in good condition he was transported by [facility]. He has all of his medical needs from prior admissions. Was originally admitted 9 days ago with fever and confusion from a custodial.. Patient states he had only been there 1 week. Patient had multiple medical problems including blindness, dementia, renal transplant, stroke, bedbound state, atrial fib on Cardizem and Eliquis, congestive heart failure, insulin-dependent diabetes, suprapubic catheter. In the emergency room patient was found to have confusion as well as pyuria from an indwelling catheter and fever and leukocytosis and hypokalemia Vancomycin and Zosyn. Admission his white blood cell count was 17,400 at the time of discharge it is gone down to 13.8 Patient's glucose levels continue to run high, in the low 200s Flu swab a and B in the emergency room were negative Original blood cultures on grew out staph warneri, sensitive to tetracycline vancomycin Levaquin gentamicin Patient had Levaquin 500 mg 5 tablets called in to finish out his antibiotic regimen at the time of discharge Culture grew out a yeast and he was treated with Diflucan's for this Recent blood cultures drawn on the showed no growth after 72 hours and prior to that blood cultures on the showed no growth in 5 days Patient was back to his baseline at the time of discharge. Was to continue the 5 more days of antibiotics and follow-up with his primary care provider. - Additional Information Resuscitation Status: Do Not Resuscitate Discharge Diet: As Tolerated Discharge Activity: Activity As Tolerated, Balance Activity w/Rest, Bedrest Referrals: LAURA ERVIN MD [Primary Care Provider] - 02/15/20 2:00 pm Prescriptions: Cephalexin Monohydrate [Keflex 500 mg Capsule] 500 mg PO QID #20 capsule Home Medications: Apixaban [Eliquis 5 mg Tablet] 5 mg PO BID 01/31/20 Ascorbic Acid [C-1000] 1,000 mg PO DAILY 01/31/20 Bumetanide [Bumex 1 mg Tablet] 2 mg PO QAM 01/31/20 Bumetanide [Bumex 1 mg Tablet] 3 mg PO DAILY@1600 01/31/20 Buspirone HCl [Buspar 10 mg Tablet] 10 mg PO DAILY@1300 01/31/20 Collagenase Clostridium Hist. [Santyl Ointment 30 gm] 1 applic TP DAILY 01/31/20 Diltiazem HCl [Cardizem 30 mg Tablet] 30 mg PO Q8 01/31/20 Ferrous Sulfate [Ferosul] 325 mg PO DAILY 01/31/20 Gabapentin [Neurontin 100 mg Capsule] 100 mg PO TID 01/31/20 Hydralazine HCl [Apresoline 50 mg Tablet] 50 mg PO TID 01/31/20 Insulin Glargine,Hum.rec.anlog [Lantus Insulin 100 Unit/1 ml 10 ml] 5 unit SUBCUT Q12H 01/31/20 Insulin Lispro [Humalog Insulin (Lispro) 100 unit/mL] 0 unit SUBCUT .SLD SCALE 01/31/20 Isosorbide Dinitrate [Isordil Titradose 5 mg Tablet] 5 mg PO TID 01/31/20 L. Acidophilus/L.bulgaricus [Lactobacillus Tablet] 1 tab PO DAILY 01/31/20 Levothyroxine Sodium [Synthroid] 125 mcg PO DAILY 01/31/20 Magnesium Oxide [Magnesium] 400 mg PO DAILY 01/31/20 Melatonin [Melatonin 5 mg Tablet] 10 mg PO QHS 01/31/20 Mycophenolate Sodium [Myfortic 180 mg Tablet.dr] 180 mg PO BID 01/31/20 Naloxegol Oxalate [Movantik 25 mg Tablet] 25 mg PO DAILYP PRN 01/31/20 Ondansetron [Zofran Odt 4 mg Tablet] 4 mg PO Q6HP PRN 01/31/20 Oxycodone HCl [Roxicodone] 15 mg PO Q4HP PRN 01/31/20 Povidone-Iodine [Antiseptic] 1 applic TP DAILY 01/31/20 Prednisone [Deltasone 5 mg Tablet] 5 mg PO DAILY 01/31/20 Risperidone [Risperdal 0.25 mg Tablet] 0.5 mg PO BID 01/31/20 Rosuvastatin Calcium [Crestor] 20 mg PO QHS 01/31/20 Silver Chloride [Silver Gel] 1 applic TP DAILY 01/31/20 Tacrolimus [Envarsus Xr] 0.75 mg PO DAILY 01/31/20 Tamsulosin HCl [Flomax] 0.4 mg PO DAILY 01/31/20 Venlafaxine HCl ER [Effexor Xr 37.5 mg Cap.sr] 37.5 mg PO DAILY 01/31/20 Vitamin B Complex 1 tab PO DAILY 01/31/20 Acetaminophen [Tylenol 325 mg Tablet] 650 mg PO Q4HP PRN tablet 02/09/20 Cephalexin Monohydrate [Keflex 500 mg Capsule] 500 mg PO QID #20 capsule 02/09/20 Docusate Sodium [Colace 100 mg Capsule] 100 mg PO DAILY capsule 02/09/20 Guaifenesin [Robitussin Syrup 200 mg/10 ml Ud Cup] 200 mg PO QID udc 02/09/20 Levofloxacin [Levaquin 500 mg Tablet] 500 mg PO DAILY 5 Days #5 tablet 02/09/20 Multivitamin [Tab-A-David (Multiple Vitamin) Tablet] 1 tab PO DAILY tablet 02/09/20 History of Present Illiness History of Present Illness: LAURA CALVILLO is a 75 year old male Physical Exam Vital Signs: Temp Pulse Resp BP Pulse Ox 97.9 F 97 18 106/35 L 94 02/09/20 15:12 02/09/20 15:12 02/09/20 15:12 02/09/20 15:12 02/09/20 15:12 Pulse Oximeter Nocturnal Start: 02/06/20 10:44 Freq: RTQ4 Status: Complete Protocol: Document 02/07/20 03:45 LDI (Rec: 02/07/20 03:45 LDI [id number]) Nocturnal Pulse Oximetry Equipment Usage Equipment in Use Oxygen Delivery Method (includes room Room Air air) O2 Sat by Pulse Oximetry (92-100) 93 Continuous Pulse Oximeter Set Up No Continuous SpO2 Discontinued No Continuous SpO2 Machine # [id number] Intake & Output 02/08/20 02/09/20 02/10/20 06:59 06:59 06:59 Intake Total 1230 2570 218 Output Total 1922024 1000 Balance -695 545 -782 Weight 87.3 kg 86.6 kg Results Laboratory Results: WBC 13.8 10^3/uL (4.0-10.5) H 02/07/20 05:28 RBC 3.56 10^6/uL (4.35-5.55) L 02/07/20 05:28 Hgb 8.8 g/dL (13.5-17.0) L 02/07/20 05:28 Hct 26.6 % (37.9-51.0) L 02/07/20 05:28 MCV 75 fl (80-97) L 02/07/20 05:28 MCH 24.7 pg (27.0-33.4) L 02/07/20 05:28 MCHC 33.0 g/dL (32.0-36.0) 02/07/20 05:28 RDW 21.9 % (11.5-14.0) H 02/07/20 05:28 Plt Count 479 10^3/uL (150-450) H 02/07/20 05:28 Lymph % (Auto) 9.8 % (13-45) L 02/07/20 05:28 [place] % (Auto) 9.6 % (3-13) 02/07/20 05:28 Eos % (Auto) 1.2 % (0-6) 02/07/20 05:28 Baso % (Auto) 0.5 % (0-2) 02/07/20 05:28 Reticulocyte # 0.047 10^6/uL (0.028-0.122) 02/04/20 05:35 Absolute Neuts (auto) 10.9 10^3/uL (1.7-8.2) H 02/07/20 05:28 Absolute Lymphs (auto) 1.4 10^3/uL (0.5-4.7) 02/07/20 05:28 Absolute Monos (auto) 1.3 10^3/uL (0.1-1.4) 02/07/20 05:28 Absolute Eos (auto) 0.2 10^3/uL (0.0-0.6) 02/07/20 05:28 Absolute Basos (auto) 0.1 10^3/uL (0.0-0.2) 02/07/20 05:28 Total Counted 100 02/03/20 07:55 Seg Neuts % (Manual) 81 % (42-78) H 02/03/20 07:55 Band Neutrophils % 2 % (3-5) L 01/31/20 04:26 Seg Neutrophils % 78.9 % (42-78) H 02/07/20 05:28 Lymphocytes % (Manual) 8 % (13-45) L 02/03/20 07:55 Monocytes % (Manual) 4 % (3-13) 02/03/20 07:55 Eosinophils % (Manual) 3 % (0-6) 02/03/20 07:55 Basophils % (Manual) 1 % (0-2) 02/03/20 07:55 Metamyelocytes % 2 % (0-1) H 02/03/20 07:55 Promyelocytes % 1 % (0) H 02/03/20 07:55 Abs Neuts (Manual) 11.7 10^3/uL (1.7-8.2) H 02/03/20 07:55 Abs Lymphs (Manual) 1.1 10^3/uL (0.5-4.7) 02/03/20 07:55 Abs Monocytes (Manual) 0.6 10^3/uL (0.1-1.4) 02/03/20 07:55 Absolute Eos (Manual) 0.4 10^3/uL (0.0-0.6) 02/03/20 07:55 Abs Basophils (Manual) 0.1 10^3/uL (0.0-0.2) 02/03/20 07:55 Nucleated RBCs 1 /100 WBC (0) 02/03/20 07:55 Toxic Granulation 1+ 02/03/20 07:55 Clumped Platelets PRESENT 02/03/20 07:55 Large Platelets PRESENT 01/30/20 21:00 Giant Platelets PRESENT 01/30/20 21:00 Platelet Comment INCREASED 02/03/20 07:55 Polychromasia SLIGHT 02/03/20 07:55 Hypochromasia 1+ 02/03/20 07:55 Poikilocytosis 2+ 02/03/20 07:55 Basophilic Stippling PRESENT 02/01/20 09:53 Anisocytosis 3+ 02/03/20 07:55 Microcytosis 1+ 02/03/20 07:55 Tear Drop Cells SLIGHT 02/01/20 09:53 Ovalocytes SLIGHT 01/31/20 04:26 [place] Cells 1+ 02/03/20 07:55 Schistocytes SLIGHT 02/01/20 09:53 Retic Count (auto) 1.27 % (0.66-2.85) 02/04/20 05:35 Carbonic Acid 1.07 mmol/L (1.05-1.35) 02/06/20 06:52 HCO3/H2CO3 Ratio 22:1 02/06/20 06:52 ABG pH 7.46 (7.35-7.45) H 02/06/20 06:52 ABG pCO2 35.5 mmHg (35-45) 02/06/20 06:52 ABG pO2 64.7 mmHg (80-100) L 02/06/20 06:52 ABG HCO3 24.6 mmol/L (20-24) H 02/06/20 06:52 ABG Total CO2 25.7 mmol/L (23-27) 02/06/20 06:52 ABG O2 Saturation 93.8 % (94-98) L 02/06/20 06:52 ABG Base Excess 1.1 mmol/L 02/06/20 06:52 VBG pH 7.49 (7.30-7.42) H 01/30/20 22:24 VBG pCO2 28.0 mmHg (35-63) L 01/30/20 22:24 VBG HCO3 21.0 mmol/L (20-32) 01/30/20 22:24 VBG Base Excess -1.4 mmol/L 01/30/20 22:24 FiO2 4L 02/06/20 06:52 Sodium 139.2 mmol/L (137-145) 02/07/20 05:28 Potassium 3.7 mmol/L (3.6-5.0) 02/07/20 05:28 Chloride 101 mmol/L (98-107) 02/07/20 05:28 Carbon Dioxide 30 mmol/L (22-30) 02/07/20 05:28 Anion Gap 8 (5-19) 02/07/20 05:28 BUN 39 mg/dL (7-20) H 02/07/20 05:28 Creatinine 1.40 mg/dL (0.52-1.25) H 02/07/20 05:28 Est GFR ( Amer) > 60 (>60) 02/07/20 05:28 Est GFR (MDRD) Non-Af 49 (>60) L 02/07/20 05:28 Glucose 136 mg/dL (75-110) H 02/07/20 05:28 POC Glucose 202 mg/dL (70-110) H 02/09/20 17:03 Hemoglobin A1c % 7.1 % (4.7-6.0) H 01/31/20 04:26 Lactic Acid 1.2 mmol/L (0.7-2.1) 01/31/20 04:26 Calcium 8.1 mg/dL (8.4-10.2) L 02/07/20 05:28 Magnesium 1.6 mg/dL (1.6-2.3) 02/02/20 05:28 Iron 17.1 ug/dL (49-181) L 02/04/20 07:55 TIBC 176 ug/dL (250-450) L 02/04/20 07:55 % Saturation 10 % 02/04/20 07:55 Ferritin 280.00 ng/mL (17.9-464.0) 02/04/20 07:55 Total Bilirubin 0.5 mg/dL (0.2-1.3) 02/07/20 05:28 Direct Bilirubin 0.4 mg/dL (0.0-0.4) 02/07/20 05:28 Neonat Total Bilirubin Not Reportable 02/07/20 05:28 Neonat Direct Bilirubin Not Reportable 02/07/20 05:28 Neonat Indirect Bili Not Reportable 02/07/20 05:28 AST 86 U/L (17-59) H 02/07/20 05:28 ALT 49 U/L (<50) 02/07/20 05:28 Alkaline Phosphatase 165 U/L (38-126) H 02/07/20 05:28 Total Protein 5.9 g/dL (6.3-8.2) L 02/07/20 05:28 Albumin 2.7 g/dL (3.5-5.0) L 02/07/20 05:28 Vitamin B12 728.0 pg/mL (239-931) 02/04/20 07:55 Folate 15.70 ng/mL (>2.76) 02/04/20 07:55 Urine Color YELLOW 02/07/20 13:00 Urine Appearance SLIGHTLY-CLOUDY 02/07/20 13:00 Urine pH 6.0 (5.0-9.0) 02/07/20 13:00 Ur Specific [place] 1.010 02/07/20 13:00 Urine Protein NEGATIVE mg/dL (NEGATIVE) 02/07/20 13:00 Urine Glucose (UA) 150 mg/dL (NEGATIVE) H 02/07/20 13:00 Urine Ketones NEGATIVE mg/dL (NEGATIVE) 02/07/20 13:00 Urine Blood NEGATIVE (NEGATIVE) 02/07/20 13:00 Urine Nitrite Cancelled 02/07/20 13:00 Urine Nitrite (Reflex) NEGATIVE (NEGATIVE) 02/07/20 13:00 Urine Bilirubin NEGATIVE (NEGATIVE) 02/07/20 13:00 Urine Urobilinogen NEGATIVE mg/dL (<2.0) 02/07/20 13:00 Ur Leukocyte Esterase Cancelled 02/07/20 13:00 Leukocyte Esterase Rfl MODERATE (NEGATIVE) H 02/07/20 13:00 Urine WBC (Auto) Cancelled 02/07/20 13:00 U Hyaline Cast (Auto) 4 /LPF 01/30/20 23:30 Urine RBC (Auto) 4 /HPF 02/07/20 13:00 Urine Bacteria (Auto) TRACE /HPF 02/07/20 13:00 Urine WBC (Reflex) 32 /HPF 02/07/20 13:00 Urine WBC Clumps FEW /HPF 02/07/20 13:00 Squamous Epi Cells Auto 1 /HPF 02/07/20 13:00 Calcium Oxalate Cr Auto MODERATE /HPF 01/30/20 23:30 Urine Mucus (Auto) RARE /LPF 02/07/20 13:00 Urine Yeast (Budding) PRESENT /HPF 02/07/20 13:00 Urine Ascorbic Acid NEGATIVE (NEGATIVE) 02/07/20 13:00 Time Trough Drawn 0953 02/01/20 09:53 Vancomycin Trough 21.4 ug/mL (5.0-20.0) H 02/01/20 09:53 Influenza A (Rapid) NEGATIVE (NEGATIVE) 01/30/20 22:33 Influenza B (Rapid) NEGATIVE (NEGATIVE) 01/30/20 22:33 Slides for Path Review PATHOLOGIST REVIEWED 02/03/20 07:55 Impressions: Chest X-Ray 02/04/20 00:00 IMPRESSION: Relatively stable appearance. Persistent left basilar changes as before. Chest X-Ray 02/06/20 00:00 IMPRESSION: STABLE APPEARANCE OF THE CHEST. Stroke Is this a Stroke Patient?: No Acute Heart Failure - Is this a Heart Failure Patient?: No
== END 2020-02-09 18:36 | disposition home or self-care (01) | DRG 871 ==
LOC: ER 19:57 → EH 01-31 → 3S 01-31 03:20
PROVIDERS: ADMIT Internal Medicine; ATTEND Physician Assistant
DX: A41.9 Sepsis, unspecified organism (principal); G93.41 Metabolic encephalopathy; T83.518A Infection and inflammatory reaction due to other urinary catheter, initial encounter; L97.428 Non-pressure chronic ulcer of left heel and midfoot with other specified severity; L97.418 Non-pressure chronic ulcer of right heel and midfoot with other specified severity; N30.00 Acute cystitis without hematuria; Z94.0 Kidney transplant status; L89.152 Pressure ulcer of sacral region, stage 2; E88.09 Other disorders of plasma-protein metabolism, not elsewhere classified; F03.90 Unspecified dementia, unspecified severity, without behavioral disturbance, psychotic disturbance, mood disturbance, and anxiety; I50.9 Heart failure, unspecified; E11.621 Type 2 diabetes mellitus with foot ulcer; D50.9 Iron deficiency anemia, unspecified; R41.82 Altered mental status, unspecified; E16.2 Hypoglycemia, unspecified; H54.7 Unspecified visual loss; I48.91 Unspecified atrial fibrillation; E11.9 Type 2 diabetes mellitus without complications; E87.6 Hypokalemia; I25.10 Atherosclerotic heart disease of native coronary artery without angina pectoris; H91.90 Unspecified hearing loss, unspecified ear; E83.42 Hypomagnesemia; E66.3 Overweight; Z66 Do not resuscitate; Z86.73 Personal history of transient ischemic attack (TIA), and cerebral infarction without residual deficits; Z74.01 Bed confinement status; Z79.01 Long term (current) use of anticoagulants; Z79.4 Long term (current) use of insulin; Z79.899 Other long term (current) drug therapy; Z79.52 Long term (current) use of systemic steroids; Z98.84 Bariatric surgery status; Z91.041 Radiographic dye allergy status; Z88.2 Allergy status to sulfonamides; Z88.8 Allergy status to other drugs, medicaments and biological substances; Z88.6 Allergy status to analgesic agent; Z68.26 Body mass index [BMI] 26.0-26.9, adult
CPT/HCPCS: 36415; 71045; 80048; 80053; 80076; 80202; 81001; 82607; 82728; 82746; 82803; 82962; 83036; 83540; 83550; 83605; 83735; 85025; 85027; 85045; 87040; 87077; 87086; 87150; 87186; 87804; 93005; 93010; 94640; 94762; 96365; 96366; 96368; 99285; C1758; J1815; J1956; J2543; J3370; J3475; J3480; J3490; J7030; J7050; J7060; J7512; J7620; P9047